=== PATIENT | female | born 1940 | race Hispanic/Latino ===

== ENCOUNTER 2016-11-04 17:57 | Emergency (ER) | payer MEDICARE, SELFPAY ==
[2016-11-04 18:01] VITALS: BMI 24.7
--- NOTE | 2016-11-04 18:06 | ED PDOC ---
Arrival/HPI - General Chief Complaint: Lower Extremity Problem/Injury Time Seen by Provider: 11/04/16 18:01 Historian: Patient, Family (Daughter translates), Mobile Game Engineer - History of Present Illness Time/Duration: Other (This morning) Symptom Onset: Sudden Symptom Course: Unchanged Severity Level: Moderate Associated Symptoms (Text): 11/04/16 18:05 Slip and fall on an icy step outside injuring her right lateral ankle. No other injury or trauma. Family/Social History - Physician Review Nursing Documentation Reviewed: Yes Family/Social History: Unknown Family HX Smoking Status: Never Smoked Hx Alcohol Use: No Hx Substance Use: No Allergies/Home Meds Allergies/Adverse Reactions: Allergies No Known Allergies Allergy (Verified 11/04/16 18:01) Review of Systems - Physician Review All systems were reviewed & negative as marked: Yes Physical Exam Vital Signs Temp Pulse Resp BP Pulse Ox 11/04/16 17:57 97.9 F 65 14 173/93 H 96 Temperature: Afebrile Blood Pressure: Normal Pulse: Regular Respiratory Rate: Normal Appearance: Positive for: Well-Appearing, Non-Toxic, Uncomfortable Pain Distress: Moderate Mental Status: Positive for: other (Awake alert and cooperative) - Systems Exam Upper Extremity: Present: NORMAL PULSES, Tenderness, Swelling, Neurovascularly Intact, Other (Right lateral ankle is tender swollen and ecchymotic. Patient is unable to bear weight. The foot is nontender. Medial malleolus and deltoid ligament are nontender. No proximal fibula tenderness.). No: Normal ROM, Erythema, Deformity Skin: Present: Warm, Dry, Normal Color. No: Rashes Medical Decision Making - RAD Interpretation Radiology Orders: 11/04/16 18:04 ANKLE RIGHT 3 VIEWS ROUTINE [RAD] Stat Ankle 3 view shows no fracture or dislocation Campground Manager: ED Physician Disposition/Present on Arrival - Present on Arrival Any Indicators Present on Arrival: No History of DVT/PE: No History of Uncontrolled Diabetes: No Urinary Catheter: No History of Decub. Ulcer: No - Disposition Have Diagnosis and Disposition been Completed?: Yes Diagnosis: Ankle sprain Disposition: HOME/ ROUTINE Disposition Time: 19:18 Patient Plan: Discharge Condition: GOOD Discharge Instructions (ExitCare): Ankle Sprain (ED) Additional Instructions: Rest ice and elevation. Tylenol or Advil as directed on bottle as needed. Follow -up with PMD. Follow up in ER as needed. Prescriptions: Tramadol HCl [Ultram] 50 mg PO Q6 PRN #14 tab PRN Reason: Pain
[2016-11-04 18:08] VITALS: BP 173/93; PULSE 65; RESP 14; TEMP 97.9; O2SAT 96
--- NOTE | 2016-11-05 10:31 | RAD ---
PROCEDURE: Right Ankle Radiographs. HISTORY: trauma COMPARISON: None available. FINDINGS: BONES: No acute displaced fracture. Small calcaneal enthesophyte. Small heel spur. JOINTS: No dislocation. SOFT TISSUES: Soft tissue swelling most prominent laterally. No evidence of radiopaque foreign body. OTHER FINDINGS: None. IMPRESSION: Soft tissue swelling most prominent laterally. No acute displaced fracture or dislocation identified. If symptoms persist or if there is clinical concern, x-ray follow-up in 7-10 days should be considered.
== END 2016-11-04 20:21 | disposition home or self-care (01) ==
LOC: ED 17:57
DX: S93.401A Sprain of unspecified ligament of right ankle, initial encounter (principal); W00.0XXA Fall on same level due to ice and snow, initial encounter

== ENCOUNTER 2018-04-29 21:08 | Inpatient (IN) | payer MEDICARE, OTHER ==
[2018-04-29 21:29] VITALS: BMI 25.6
--- NOTE | 2018-04-29 21:48 | ED PDOC ---
Arrival/HPI - General Chief Complaint: Weakness/Neurological Deficit Time Seen by Provider: 04/29/18 21:10 Historian: Patient, Family (Daughter) - History of Present Illness Narrative History of Present Illness (Text): 04/29/18 21:44 Nilam Kilpatrick is a 78 year old female, whose past medical history includes colon cancer and hypertension, who presents to the ED brought in by family complaining of chest pain. Daughter states patient has been experiencing chest pressure, nausea, and chills since 12:00 today. Daughter states patient is scheduled for surgery tomorrow and took GoLytely yesterday to prep for surgery. Daughter also reports patient took 2 doses of Azithromycin and Neomycin earlier and has not eaten today. Daughter denies any history of shortness of breath, abdominal pain, nausea, vomiting, diarrhea, or any other complaints. PMD: Dr. Kim Surgeon: Dr. Blanco Symptom Onset: Gradual Symptom Course: Unchanged Quality: Pressure Activities at Onset: Light Context: Home Past Medical History - Provider Review Nursing Documentation Reviewed: Yes - Infectious Disease Hx of Infectious Diseases: None - Reproductive Menopause: Yes - Cardiac Hx Hypertension: Yes - Pulmonary Hx Respiratory Disorders: No - Neurological Hx Neurological Disorder: No - HEENT Hx HEENT Disorder: No - Renal Hx Renal Disorder: No - Endocrine/Metabolic Hx Endocrine Disorders: No - Hematological/Oncological Hx Blood Disorders: No Hx Cancer: Yes (Colon) - Integumentary Hx Dermatological Disorder: No - Musculoskeletal/Rheumatological Hx Musculoskeletal Disorders: No - Gastrointestinal Hx Gastrointestinal Disorders: No Hx Bowel Surgery: No - Genitourinary/Gynecological Hx Genitourinary Disorders: No - Psychiatric Hx Psychophysiologic Disorder: No Hx Substance Use: No - Anesthesia Hx Anesthesia: No Hx Anesthesia Reactions: No Hx Malignant Hyperthermia: No Family/Social History - Physician Review Nursing Documentation Reviewed: Yes Family/Social History: Unknown Family HX Smoking Status: Never Smoked Hx Alcohol Use: No Hx Substance Use: No Allergies/Home Meds Allergies/Adverse Reactions: Allergies No Known Allergies Allergy (Verified 04/29/18 21:32) Home Medications: Home Meds Medication Instructions Recorded Confirmed Donepezil HCl [Aricept] 5 mg PO HS 04/13/18 04/13/18 Ibuprofen [Motrin Tab] 200 mg PO PRN PRN 04/13/18 04/13/18 Losartan [Cozaar] 50 mg PO DAILY 04/13/18 04/13/18 Meloxicam [Mobic] 15 mg PO DAILY 04/13/18 04/13/18 Timolol [Betimol 5 ml] 1 drop EACHEYE QAM 04/13/18 04/13/18 Review of Systems - Physician Review All systems were reviewed & negative as marked: Yes - Review of Systems Constitutional: Other (+shaking) Eyes: Normal ENT: Normal Respiratory: Cough Cardiovascular: Chest Pain Gastrointestinal: Nausea Genitourinary Female: Normal. absent: Dysuria, Frequency, Hematuria, Urine Output Changes Musculoskeletal: Normal. absent: Back Pain, Neck Pain Skin: Normal. absent: Rash Neurological: Normal. absent: Headache, Dizziness Endocrine: Normal Hemo/Lymphatic: Normal Psychiatric: Normal Physical Exam Vital Signs Reviewed: Yes Vital Signs Pulse Resp BP Pulse Ox 04/29/18 21:22 66 18 166/80 H 99 Temperature: Afebrile Blood Pressure: Hypertensive Pulse: Regular Respiratory Rate: Normal Appearance: Positive for: Well-Appearing, Non-Toxic, Comfortable Pain Distress: None Mental Status: Positive for: Alert and Oriented X 3 - Systems Exam Head: Present: Atraumatic, Normocephalic Pupils: Present: PERRL Extroacular Muscles: Present: EOMI Conjunctiva: Present: Normal Mouth: Present: Moist Mucous Membranes Neck: Present: Normal Range of Motion. No: Meningeal Signs, MIDLINE TENDERNESS , Paraspinal Tenderness Respiratory/Chest: Present: Clear to Auscultation, Good Air Exchange. No: Respiratory Distress, Accessory Muscle Use Cardiovascular: Present: Regular Rate and Rhythm, Normal S1, S2. No: Murmurs Abdomen: No: Tenderness, Distention, Peritoneal Signs Back: Present: Normal Inspection. No: CVA Tenderness, Midline Tenderness Upper Extremity: Present: Normal Inspection. No: Cyanosis, Edema Lower Extremity: Present: Normal Inspection. No: Edema Neurological: Present: GCS=15, CN II-XII Intact, Speech Normal Skin: Present: Warm, Dry, Normal Color. No: Rashes Psychiatric: Present: Alert, Oriented x 3, Normal Insight, Normal Concentration Medical Decision Making ED Course and Treatment: 04/29/18 21:44 Impression: 78 year old female brought in for chest pressure, nausea, and chills since 12: 00 today. Plan: -- EKG -- CXR -- Labs, cardiac enzymes -- Reassess and disposition Progress Notes: Reviewed EKG, NSR at 63 bpm. LAD. RBBB. Non-specific ST/T wave changes. 04/29/18 22:38 CXR reviewed, shows no acute processes. 04/29/18 23:17 Case discussed with emergency medical technician basic duplication specialist, who is aware and agrees with plan. House physician paged. 04/29/18 23:[address] Roach, ree heights physician, who is aware and agrees with plan. Accepts pt in to hospitalist service. Pt will go to remote telemetry observation for chest pain. - Lab Interpretations Lab Results: 04/29/18 22:08 04/29/18 22:08 Lab Results 04/29/18 22:08: PT 11.9, INR 1.04, APTT 29.1 04/29/18 22:08: WBC 8.0 D, RBC 4.54, Hgb 13.4, Hct 39.3, MCV 86.6, MCH 29.5, MCHC 34.1, RDW 13.8, Plt Count 252, MPV 10.7 04/29/18 22:08: Sodium 134, Potassium 3.5 L, Chloride 99, Carbon Dioxide 22, Anion Gap 16, BUN 11, Creatinine 0.7, Est GFR ( Amer) > 60, Est GFR (Non- Af Amer) > 60, Random Glucose 128 H, Calcium 8.9, Total Bilirubin 2.4 H, AST 31 , ALT 17, Alkaline Phosphatase 97, Lactate Dehydrogenase 469, Total Creatine Kinase 83, Troponin I < 0.01, Total Protein 7.3, Albumin 4.1, Globulin 3.2, Albumin/Globulin Ratio 1.3 I have reviewed the lab results: Yes - RAD Interpretation Radiology Orders: 04/29/18 21:50 CHEST PORTABLE [RAD] Stat Milling/Polishing Operator: ED Physician - EKG Interpretation Interpreted by ED Physician: Yes Type: 12 lead EKG - Medication Orders Current Medication Orders: Ondansetron HCl (Zofran Inj) 4 mg IVP ONCE ONE Stop: 04/29/18 23:27 - Scribe Statement The provider has reviewed the documentation as recorded by the Scribjono Jones All medical record entries made by the Scribe were at my direction and personally dictated by me. I have reviewed the chart and agree that the record accurately reflects my personal performance of the history, physical exam, medical decision making, and the department course for this patient. I have also personally directed, reviewed, and agree with the discharge instructions and disposition. Disposition/Present on Arrival - Present on Arrival Any Indicators Present on Arrival: No History of DVT/PE: No History of Uncontrolled Diabetes: No Urinary Catheter: No History of Decub. Ulcer: No History Surgical Site Infection Following: None - Disposition Have Diagnosis and Disposition been Completed?: Yes Diagnosis: Chest pain Disposition: HOSPITALIZED Disposition Time: 23:22 Patient Problems: Current Active Problems Problem Status Onset Chest pain Acute Condition: STABLE Discharge Instructions (ExitCare): Chest Pain (ED) Referrals: Becki Mtz MD [Primary Care Provider] - Follow up with primary Forms: [facility] [facility] (Cuban)
[2018-04-29 22:45] LABS: HEMOGLOBIN 13.4 g/dL (12.0-16.0); MEAN CELL VOLUME 86.6 fl (80.0-105.0); MEAN CORPUSCULAR HEMOGLOBIN 29.5 pg (25.0-35.0); MEAN CORPUSCULAR HGB CONC 34.1 g/dl (31.0-37.0); MEAN PLATELET VOLUME 10.7 fl (7.0-11.0); RBC 4.54 10^6/uL (3.5-6.1); RED CELL DISTRIBUTION WIDTH 13.8 % (11.5-14.5)
[2018-04-29 23:01] LABS: ALB/GLOB RATIO 1.3 (1.1-1.8); ALBUMIN 4.1 g/dL (3.0-4.8); ALT/SGPT 17 U/L (7-56); AST/SGOT 31 U/L (14-36); BLOOD UREA NITROGEN 11 mg/dL (7-21); CALCIUM 8.9 mg/dL (8.4-10.5); GFR NON-AFRICAN AMERICAN > 60
[2018-04-29 23:02] LABS: TROPONIN I < 0.01 ng/mL
[2018-04-29 23:08] LABS: INR 1.04; PARTIAL THROMBOPLASTIN TIME 29.1 Seconds (25.1-36.5); PROTHROMBIN TIME 11.9 SECONDS (9.4-12.5)
--- NOTE | 2018-04-30 02:09 | CP.PCM.HP ---
<Chava Mccray - Last Filed: 04/30/18 02:27> History of Present Illness - History of Present Illness History of Present Illness: Chava Mccray, PGY-1 H&P for Hospitalist Service This is a 78 year old female with PMH of colon cancer and HTN presenting to the hospital for generalized weakness, nausea and vague chest discomfort that began on Monday. Patient's daughter provides translation and states patient is scheduled for partial colectomy today by Dr. Blanco and took golytely on Monday and neomycin/azithromycin on Monday morning at 6am. Subsequently, around 12pm on Monday, patient started to feel nauseous, vomited x1 yellow fluid and had generalized weakness with atypical chest discomfort. Currently, patient admits symptoms have resolved. She denies CP, SOB, abdominal pain, urinary complaints, back pain, melena, numbness, tingling, headaches, fevers, chills, recent travel and recent sickness. 12 point ROS noted here, otherwise unremarkable. In the ED, EKG showed NSR with RBBB at 63 bpm. CXR was negative for acute disease (interpreted by me). Troponin was <0.01. Patient will be admitted to telemetry. PMH: colon cancer (diagnosed one month ago) and HTN SH: denies smoking, occasional alcohol and denies drugs FH: denies Sx: appendectomy Meds: losartan and donepezil PMD: Dr. Kim General Surgery: Dr. Blanco Present on Admission - Present on Admission Any Indicators Present on Admission: No Past Patient History - Infectious Disease Hx of Infectious Diseases: None - Past Social History Smoking Status: Never Smoked - CARDIAC Hx Hypertension: Yes - PULMONARY Hx Respiratory Disorders: No - NEUROLOGICAL Hx Neurological Disorder: No - HEENT Hx HEENT Problems: No - RENAL Hx Chronic Kidney Disease: No - ENDOCRINE/METABOLIC Hx Endocrine Disorders: No - HEMATOLOGICAL/ONCOLOGICAL Hx Blood Disorders: No Hx Cancer: Yes (Colon) - INTEGUMENTARY Hx Dermatological Problems: No - MUSCULOSKELETAL/RHEUMATOLOGICAL Hx Musculoskeletal Disorders: No - GASTROINTESTINAL Hx Gastrointestinal Disorders: No Hx Bowel Surgery: No - GENITOURINARY/GYNECOLOGICAL Hx Genitourinary Disorders: No - PSYCHIATRIC Hx Psychophysiologic Disorder: No Hx Substance Use: No - SURGICAL HISTORY Hx Surgeries: No - ANESTHESIA Hx Anesthesia: No Hx Anesthesia Reactions: No Hx Malignant Hyperthermia: No Meds Allergies/Adverse Reactions: Allergies Allergy/AdvReac Type Severity Reaction Status Date / Time No Known Allergies Allergy Verified 04/29/18 21:32 Physical Exam - Constitutional Appears: No Acute Distress - Head Exam Head Exam: ATRAUMATIC, NORMAL INSPECTION - Eye Exam Eye Exam: EOMI Pupil Exam: PERRL - ENT Exam ENT Exam: Mucous Membranes Moist - Respiratory Exam Respiratory Exam: Clear to Auscultation Bilateral. absent: Respiratory Distress - Cardiovascular Exam Cardiovascular Exam: REGULAR RHYTHM, +S1, +S2 - GI/Abdominal Exam GI & Abdominal Exam: Normal Bowel Sounds. absent: Firm, Guarding - Extremities Exam Extremities exam: Positive for: normal inspection. Negative for: calf tenderness - Back Exam Back exam: NORMAL INSPECTION - Neurological Exam Neurological exam: Alert, Oriented x3 - Skin Skin Exam: Normal Color, Warm Results - Vital Signs Recent Vital Signs: Last Vital Signs Temp 98.9 F 04/30/18 00:15 Pulse 61 04/30/18 00:15 Resp 16 04/30/18 00:15 BP 93/52 L 04/30/18 00:15 Pulse Ox 94 L 04/30/18 00:15 - Labs Result Diagrams: 04/29/18 22:08 04/29/18 22:08 Assessment & Plan - Assessment and Plan (Free Text) Assessment: This is a 78 year old female with PMH of colon cancer and HT presenting to the hospital for generalized weakness, nausea and atypical discomfort that began on Monday. Patient originally scheduled for partial colectomy today by Dr. Yanes. Chest pain -initial EKG showed NSR with RBBB at 63bpm -initial troponin <0.01 -EKG, troponin trending q6 x2 -echo pending -cardiology on consult, Dr. Gill History of colon cancer -partial colectomy today by Dr. Yanes -may need to be rescheduled and will need clearance by cardiology -cardiovascular surgical tech made aware of patient -NPO Hx of hypertension -continue home losartan PPX with protonix and SCD Patient seen and case d/w with attending, Dr. Doc Mccray, PGY-1 <Susanne Roach - Last Filed: 04/30/18 05:16> Results - Vital Signs Recent Vital Signs: Last Vital Signs Temp 98.1 F 04/30/18 02:33 Pulse 67 04/30/18 02:33 Resp 18 04/30/18 02:33 BP 117/66 04/30/18 02:33 Pulse Ox 95 04/30/18 02:33 - Labs Result Diagrams: 04/29/18 22:08 04/29/18 22:08 Attending/Attestation - Attestation I have personally seen and examined this patient.: Yes I have fully participated in the care of the patient.: Yes I have reviewed all pertinent clinical information: Yes Notes (Text): 04/30/18 05:12 Patient was seen when she was in the ER. Medical record was reviewed. Agree with history ,physical examination,assessment and plan. This 78 year old white woman who has history of HTN, who was recently diagnosed to have colon cancer is scheduled for surgery today, comes in with chest pressure and nause, EKG changes, will get serial EKG,Troponin cardiology and surgical consult with . Chest pressure had subsided when I saw patient.
[2018-04-30] MEDS: Pantoprazole 20 mg EC Tab PO SCH (05:13)
[2018-04-30] MEDS: Sodium Chloride 0.9% 1,000 ML IV SCH ×2 (05:56→22:02)
--- NOTE | 2018-04-30 06:11 | CP.PCM.CON ---
History of Present Illness - History of Present Illness History of Present Illness: General Surgery consult note for Dr. Blanco Consulted for: planned elective hand assisted lap hemicolectomy--presented to ER with chest pain Pt is 78F with PMH including HTN and colon cancer and PSH of appendectomy who was scheduled for an elective hand assisted laparoscopic hemicolectomy this AM but experienced chest pressure, nausea and nonbilious, non-blooding vomiting yesterday after taking the erythromycin and neomycin for the bowel prep. Patient denies any chest pain at this time, nausea, vomiting, or any other issues. Patient denies any personal or family history of heart problems but says she has had similar chest discomfort occasionally in the past. PMH: htn, colon cancer, glaucoma, arthritis PSH: glaucoma ALL: NKDA Review of Systems - Review of Systems All systems: reviewed and no additional remarkable complaints except (as per HPI ) Past Patient History - Infectious Disease Hx of Infectious Diseases: None - Past Medical History & Family History Past Medical History?: Yes Past Family History: Reviewed and not pertinent - Past Social History Smoking Status: Never Smoked - CARDIAC Hx Hypertension: Yes - PULMONARY Hx Respiratory Disorders: No - NEUROLOGICAL Hx Neurological Disorder: No - HEENT Hx HEENT Problems: No - RENAL Hx Chronic Kidney Disease: No - ENDOCRINE/METABOLIC Hx Endocrine Disorders: No - HEMATOLOGICAL/ONCOLOGICAL Hx Blood Disorders: No Hx Cancer: Yes (Colon) - INTEGUMENTARY Hx Dermatological Problems: No - MUSCULOSKELETAL/RHEUMATOLOGICAL Hx Musculoskeletal Disorders: No - GASTROINTESTINAL Hx Gastrointestinal Disorders: No Hx Bowel Surgery: No - GENITOURINARY/GYNECOLOGICAL Hx Genitourinary Disorders: No - PSYCHIATRIC Hx Psychophysiologic Disorder: No Hx Substance Use: No - SURGICAL HISTORY Hx Surgeries: No - ANESTHESIA Hx Anesthesia: No Hx Anesthesia Reactions: No Hx Malignant Hyperthermia: No Meds Allergies/Adverse Reactions: Allergies Allergy/AdvReac Type Severity Reaction Status Date / Time No Known Allergies Allergy Verified 04/29/18 21:32 - Medications Medications: Current Medications Donepezil HCl (Aricept) 5 mg PO HS JO ANN Potassium Chloride (Potassium Chloride 10 Meq/100 Ml) 10 meq in 100 mls @ 50 mls/hr IVPB Q2H JO ANN Stop: 04/30/18 09:44 Last Admin: 04/30/18 05:57 Dose: 50 mls/hr Sodium Chloride (Sodium Chloride 0.9%) 1,000 mls @ 100 mls/hr IV .Q10H [facility] Last Admin: 04/30/18 05:56 Dose: 100 mls/hr Losartan Potassium (Cozaar) 50 mg PO DAILY [facility] Pantoprazole Sodium (Protonix Ec Tab) 20 mg PO 0600 [facility] Last Admin: 04/30/18 05:13 Dose: Not Given Physical Exam - Constitutional Appears: Well, Non-toxic, No Acute Distress - Head Exam Head Exam: ATRAUMATIC, NORMOCEPHALIC - Eye Exam Eye Exam: Normal appearance. absent: Conjunctival injection, Scleral icterus - ENT Exam ENT Exam: Mucous Membranes Moist, Normal Oropharynx - Respiratory Exam Respiratory Exam: NORMAL BREATHING PATTERN. absent: Accessory Muscle Use, Respiratory Distress - Cardiovascular Exam Cardiovascular Exam: RRR - GI/Abdominal Exam GI & Abdominal Exam: Soft. absent: Distended, Tenderness - Extremities Exam Extremities exam: Positive for: pedal pulses present. Negative for: calf tenderness, pedal edema - Neurological Exam Neurological exam: Alert, Oriented x3 - Psychiatric Exam Psychiatric exam: Normal Affect, Normal Mood - Skin Skin Exam: Dry, Normal Color, Warm Results - Vital Signs Recent Vital Signs: Last Vital Signs Temp 98.1 F 04/30/18 02:33 Pulse 67 04/30/18 02:33 Resp 18 04/30/18 02:33 BP 117/66 04/30/18 02:33 Pulse Ox 95 04/30/18 02:33 - Labs Result Diagrams: 04/29/18 22:08 04/29/18 22:08 Assessment & Plan - Assessment and Plan (Free Text) Assessment: 78F with colon cancer presenting with chest pain Plan: Possible OR this AM pending anesthesia evaluation Follow up cardiology recs and ECHO and serial troponins NPO IVF Trend CBC and CMP PRN nausea medication Will discuss with Dr. Blanco, further recs per him Shani Wick, PGY2
--- NOTE | 2018-04-30 09:02 | RAD ---
Date of service: 04/29/2018 HISTORY: chest pain COMPARISON: 04/13/2018 FINDINGS: LUNGS: No active pulmonary disease. PLEURA: No significant pleural effusion identified, no pneumothorax apparent. CARDIOVASCULAR: Normal. OSSEOUS STRUCTURES: No significant abnormalities. VISUALIZED UPPER ABDOMEN: Normal. OTHER FINDINGS: None. IMPRESSION: No active disease.
[2018-04-30] MEDS ORDERED: Propofol 10 mg/ml Inj (20 ML) ONE (09:58)
[2018-04-30] MEDS ORDERED: Rocuronium 10 mg/ml (5 ml) ONE ×2 (09:59→11:10)
[2018-04-30] MEDS ORDERED: CeFAZolin 1 gm in NS 100ml IVPB ONE (10:30)
[2018-04-30] MEDS ORDERED: MetroNIDAZOLE 500 mg/100 ml IVPB ONE (10:35)
[2018-04-30] MEDS ORDERED: Bupivacaine 0.5% Inj(30mL) IJ ONE ×2 (10:40)
[2018-04-30] MEDS ORDERED: ePHEDrine 50 mg/ml Inj ONE (10:51)
[2018-04-30] MEDS ORDERED: Neostigmine Methylsulfate 3mg/3ml Syringe IV ONE (13:12)
[2018-04-30] MEDS ORDERED: Bupivacaine Liposomal Inj 20 ml INJ ONE (13:30)
[2018-04-30] MEDS ORDERED: HYDROmorphone 0.5 mg/0.5 ml ISec IVP PRN (14:12)
--- NOTE | 2018-04-30 14:13 | PCM.SURG1 ---
Surgeon's Initial Post Op Note - Surgeon's Notes Surgeon: Dr. Blanco Pin Ticket Machine Operator: Dr. Cano PGY3, [place] Type of Anesthesia: General Endo Anesthesia Administered By: Dr. Burdick Pre-Operative Diagnosis: Ileocecal adenocarcinoma Operative Findings: See operative dictation Post-Operative Diagnosis: Ileocecal Adenocarcinoma Operation Performed: Laparoscopic hand assisted colectomy with ileotransverse anastamosis, repair of umbilical hernia Specimen/Specimens Removed: Distal ileum/cecum and ascending colon Estimated Blood Loss: EBL {In ML}: 10 Blood Products Given: N/A Drains Used: No Drains Post-Op Condition: Good Date of Surgery/Procedure: 04/30/18 Time of Surgery/Procedure: 14:13
[2018-04-30] MEDS ORDERED: Acetaminophen 650mg/20.3ml solution UD PO PRN (14:21)
--- NOTE | 2018-04-30 15:55 | CARD ---
APPROVED REPORT Date of service: 04/29/2018 EKG Measurement Heart [id number] <Conclusion> Normal sinus rhythm Left axis deviation Right bundle branch block Cannot rule out Inferior infarct, age undetermined Abnormal ECG
[2018-04-30] MEDS: HYDROmorphone 0.5 mg/0.5 ml ISec IVP PRN (17:37)
--- NOTE | 2018-04-30 18:27 | CARD ---
APPROVED REPORT Date of service: 04/30/2018 EKG Measurement Heart [id number] <Conclusion> Sinus rhythm with occasional premature ventricular complexes Right bundle branch block Possible Inferior infarct, age undetermined Abnormal ECG
[2018-04-30] MEDS: Benzocaine/Menthol (Cepacol) Lozenge MT PRN (20:55)
[2018-05-01] MEDS: Pantoprazole 20 mg EC Tab PO SCH (05:27)
[2018-05-01] MEDS: HYDROmorphone 0.5 mg/0.5 ml ISec IVP PRN ×2 (05:28→21:14)
[2018-05-01 06:36] LABS: BASO # 0.01 K/mm3 (0.0-2.0); BASO % 0.1 % (0.0-3.0); GRAN # 5.64 (1.4-6.5); GRAN % 71.9 % (50.0-68.0); HEMOGLOBIN 11.7 g/dL (12.0-16.0); LYMPH # 1.3 (1.2-3.4); LYMPH % 16.4 % (22.0-35.0); MEAN CELL VOLUME 88.6 fl (80.0-105.0); MEAN CORPUSCULAR HEMOGLOBIN 29.5 pg (25.0-35.0); MEAN CORPUSCULAR HGB CONC 33.3 g/dl (31.0-37.0); MONO # 0.9 (0.1-0.6); MONO % 11.6 % (1.0-6.0); RBC 3.96 10^6/uL (3.5-6.1); RED CELL DISTRIBUTION WIDTH 14.2 % (11.5-14.5); WHITE BLOOD COUNT 7.9 10^3/ul (4.5-11.0)
[2018-05-01 07:08] LABS: ALB/GLOB RATIO 1.1 (1.1-1.8); ALBUMIN 2.9 g/dL (3.0-4.8); ALT/SGPT 22 U/L (7-56); AST/SGOT 24 U/L (14-36); BLOOD UREA NITROGEN 8 mg/dL (7-21); CALCIUM 7.9 mg/dL (8.4-10.5); GFR NON-AFRICAN AMERICAN > 60
--- NOTE | 2018-05-01 07:23 | CP.PCM.PN ---
Subjective - Date & Time of Evaluation Date of Evaluation: 05/01/18 Time of Evaluation: 06:30 - Subjective Subjective: Awake,comfortable, denies chest pain Reason for consultation and follow up: Cardiac evaluation of chest pain,cardiac clearance for surgery, follow up status post laparoscopic colectomy and repair of umbilical hernia.History of colon cancer and hypertension. Seen and examined by me and Dr. Katz Objective - Vital Signs/Intake and Output Vital Signs (last 24 hours): Temp Pulse Resp BP Pulse Ox 99.9 F H 61 20 147/79 95 05/01/18 00:00 05/01/18 02:00 05/01/18 00:00 05/01/18 00:00 05/01/18 00:00 Intake and Output: 05/01/18 05/01/18 06:59 18:59 Intake Total 1440 Output Total 2300 Balance -860 - Medications Medications: Current Medications Acetaminophen (Tylenol 650mg/20.3ml Solution Ud) 650 mg PO Q6H PRN PRN Reason: Pain, Mild (1-3) Benzocaine/Menthol (Cepacol Sore Throat) 1 jacob MT Q2H PRN PRN Reason: Sore Throat Last Admin: 04/30/18 20:55 Dose: 1 jacob Donepezil HCl (Aricept) 5 mg PO HS [facility] Last Admin: 05/01/18 01:01 Dose: Not Given Enoxaparin Sodium (Lovenox) 30 mg SC DAILY [facility] PRN Reason: Protocol Hydromorphone HCl (Dilaudid) 0.5 mg IVP Q6H PRN PRN Reason: Pain, severe (8-10) Last Admin: 05/01/18 05:28 Dose: 0.5 mg Sodium Chloride (Sodium Chloride 0.9%) 1,000 mls @ 100 mls/hr IV .Q10H JO ANN Last Admin: 04/30/18 22:02 Dose: 100 mls/hr Losartan Potassium (Cozaar) 50 mg PO DAILY [facility] Last Admin: 04/30/18 11:49 Dose: Not Given Pantoprazole Sodium (Protonix Ec Tab) 20 mg PO 0600 [facility] Last Admin: 05/01/18 05:27 Dose: 20 mg - Labs Labs: 05/01/18 06:00 05/01/18 06:00 PT 11.9 SECONDS (9.4-12.5) 04/29/18 22:08 INR 1.04 04/29/18 22:08 APTT 29.1 Seconds (25.1-36.5) 04/29/18 22:08 - Constitutional Appears: No Acute Distress - Eye Exam Eye Exam: Normal appearance - ENT Exam ENT Exam: Mucous Membranes Moist - Respiratory Exam Respiratory Exam: Clear to Ausculation Bilateral, NORMAL BREATHING PATTERN - Cardiovascular Exam Cardiovascular Exam: REGULAR RHYTHM, +S1, +S2 Additional comments: Telemetry NSR 60-70's - GI/Abdominal Exam GI & Abdominal Exam: Soft, Hypoactive Bowel Sounds Additional comments: abdominal dressing,dermabond laparoscopic sites - Extremities Exam Extremities Exam: Normal Capillary Refill - Neurological Exam Neurological Exam: Alert, Awake, Oriented x3 - Psychiatric Exam Psychiatric exam: Normal Affect - Skin Skin Exam: Intact, Warm Assessment and Plan - Assessment and Plan (Free Text) Assessment: A 78 year old who came in to the ER due to weakness,nausea,vomiting and vague chest discomfort. She was taking golyte for bowel prep for colectomy the following day.History of colon cancer, hypertension. Atypical chest discomfort. No evidence of ischemia, troponin normal.Cleared for surgery yesterday.Status post laparoscopic colectomy and repair of umbilical hernia yesterday. Doing well , stable clinically. Plan: Status post lap colectomy and umbilical hernia repair POD#1 Heart rate and blood pressure controlled Denies chest pain and shortness of breath Continue current treatment Continue current medications OOB to chair Will follow up Plan and treatment discussed with Dr. Katz
--- NOTE | 2018-05-01 08:01 | CON ---
DATE: 04/30/2018 BRIEF CLINICAL HISTORY: This is a 78-year-old female with past medical history of hypertension, scheduled for OR for colectomy for colon cancer. The patient was drinking Colyte and started throwing up and abdominal pain, so came here. At one point, the patient said that probably abdominal pain and feel chest pain, so Cardiology consult was called for. Denies any chest pain, shortness of breath, any palpitation. PAST MEDICAL HISTORY: Past history significant for hypertension, right bundle-branch block. SOCIAL HISTORY: Denies any history of alcohol abuse. CURRENT MEDICATIONS: Losartan, donepezil. PAST SURGICAL HISTORY: History of appendectomy, recently diagnosed colon cancer. REVIEW OF SYSTEMS: As per HPI. ALLERGIES: THERE IS NO KNOWN DRUG ALLERGY. PHYSICAL EXAMINATION: VITAL SIGNS: Height of the patient is 5 feet 2 inches, weight of the patient 140, body mass index . Temperature afebrile, heart rate , blood pressure 123/61. HEENT: PERRLA, intact. NECK: Supple. No carotid bruit. No thyromegaly. CHEST: Clear to auscultation. HEART: S1 and S2 regular. ABDOMEN: Soft. EXTREMITIES: Clubbing and cyanosis negative. LABORATORY DATA: Blood workup; WBC 8, hemoglobin 13.4, hematocrit 39.3, platelet count 252. Chemistry shows sodium 134, potassium 3.5, chloride , carbon dioxide 22, anion gap of 16, BUN 11, creatinine 0.7. Troponin 0.01, negative. EKG shows normal sinus rhythm, right bundle-branch block. Q wave in II, III, aVF. IMPRESSION: A 78-year-old female with past medical history significant for hypertension, recently diagnosed colon cancer. Admitted for colon surgery. Denies any chest pain. No evidence of acute myocardial infarction. Troponin remains negative. RECOMMENDATIONS: The patient is scheduled for OR this morning. The patient is cleared to go for surgery with moderate risk. We will follow with you. Discussed with resident and the nurse taking care of the patient. We will clear the patient to go for surgery. Further recommendations during the hospital course. We will follow with you. Thank you, Dr. Blanco for providing us the opportunity in taking care of the patient, Nilam Kilpatrick. Hardeep Katz MD [facility] # [id number]
--- NOTE | 2018-05-01 08:54 | CP.PCM.PN ---
Subjective - Date & Time of Evaluation Date of Evaluation: 05/01/18 Time of Evaluation: 07:20 - Subjective Subjective: General Surgery progress note for Dr. Dukes Patient seen and examined with Dr. Blount at bedside. No adverse events overnight. Pain is well controlled on current regimen, no nausea or vomiting. Objective - Vital Signs/Intake and Output Vital Signs (last 24 hours): Temp Pulse Resp BP Pulse Ox 98.5 F 64 19 167/84 H 96 05/01/18 08:31 05/01/18 08:31 05/01/18 08:31 05/01/18 08:31 05/01/18 08:31 Intake and Output: 05/01/18 05/01/18 06:59 18:59 Intake Total 1440 Output Total 2300 Balance -860 - Medications Medications: Current Medications Acetaminophen (Tylenol 650mg/20.3ml Solution Ud) 650 mg PO Q6H PRN PRN Reason: Pain, Mild (1-3) Benzocaine/Menthol (Cepacol Sore Throat) 1 jacob MT Q2H PRN PRN Reason: Sore Throat Last Admin: 04/30/18 20:55 Dose: 1 jacob Donepezil HCl (Aricept) 5 mg PO HS [facility] Last Admin: 05/01/18 01:01 Dose: Not Given Enoxaparin Sodium (Lovenox) 30 mg SC DAILY [facility] PRN Reason: Protocol Hydromorphone HCl (Dilaudid) 0.5 mg IVP Q6H PRN PRN Reason: Pain, severe (8-10) Last Admin: 05/01/18 05:28 Dose: 0.5 mg Sodium Chloride (Sodium Chloride 0.9%) 1,000 mls @ 100 mls/hr IV .Q10H JO [facility] Last Admin: 04/30/18 22:02 Dose: 100 mls/hr Losartan Potassium (Cozaar) 50 mg PO DAILY [facility] Last Admin: 04/30/18 11:49 Dose: Not Given Pantoprazole Sodium (Protonix Ec Tab) 20 mg PO 0600 [facility] Last Admin: 05/01/18 05:27 Dose: 20 mg - Labs Labs: 05/01/18 06:00 05/01/18 06:00 PT 11.9 SECONDS (9.4-12.5) 04/29/18 22:08 INR 1.04 09/09/18 22:08 APTT 29.1 Seconds (25.1-36.5) 04/29/18 22:08 - Constitutional Appears: Well, Non-toxic, No Acute Distress - Head Exam Head Exam: ATRAUMATIC, NORMOCEPHALIC - Eye Exam Eye Exam: Normal appearance. absent: Conjunctival injection, Scleral icterus - ENT Exam ENT Exam: Mucous Membranes Moist, Normal Oropharynx - Respiratory Exam Respiratory Exam: NORMAL BREATHING PATTERN. absent: Accessory Muscle Use, Respiratory Distress - GI/Abdominal Exam GI & Abdominal Exam: Soft, Tenderness (kb-incisional). absent: Distended Additional comments: incisions well approximated, no drainage, erythema, or bleeding - Extremities Exam Extremities Exam: absent: Calf Tenderness, Pedal Edema, Tenderness - Neurological Exam Neurological Exam: Alert, Awake, Oriented x3 - Psychiatric Exam Psychiatric exam: Normal Affect, Normal Mood - Skin Skin Exam: Dry, Normal Color, Warm Assessment and Plan - Assessment and Plan (Free Text) Assessment: 78F POD#1 s/p hand assisted laparoscopic right hemicolectomy Plan: trend CBC and bmp Replete electrolytes as needed Advance to CLD as tolerated Monitor for bowel function Encourage ambulation Encourage incentive spirometer use PRN pain and nausea medication Discussed with Dr. Ernst Wick, Pgy2
[2018-05-01] MEDS ORDERED: Enoxaparin 150 mg Syringe SC SCH (10:00)
[2018-05-01] MEDS ORDERED: Potassium Chloride 20 mEq ER Tab PO ONE (11:18)
[2018-05-01] MEDS: Enoxaparin 30 mg Syringe SC SCH (11:30)
[2018-05-01 11:33] LABS: HDL CHOLESTEROL 41 mg/dL (29-60)
[2018-05-01] MEDS: Sodium Chloride 0.9% 1,000 ML IV SCH (11:43)
[2018-05-01 11:44] LABS: LDL CHOLESTEROL 65 mg/dL (0-129)
[2018-05-01] MEDS: Benzocaine/Menthol (Cepacol) Lozenge MT PRN (11:50)
--- NOTE | 2018-05-01 19:26 | CP.PCM.PN ---
<Joe Lin - Last Filed: 05/01/18 19:34> Subjective - Date & Time of Evaluation Date of Evaluation: 05/01/18 Time of Evaluation: 07:20 - Subjective Subjective: Joe Lin DO PGY-1, Internal Medicine Resident. Hospitalist Progress Note Patient seen and examined at bedside. Patient is POD#1 s/p laparscoptic colectomy with ileotransverse anastomosis and umbilical hernia repair. She is resting in bed. He did not have bowel movement or pass gas yet. . No acute events overnight. Patient denied SOB, CP, palpitations, headache, fever. ROS is otherwise negative Objective - Vital Signs/Intake and Output Vital Signs (last 24 hours): Temp Pulse Resp BP Pulse Ox 98.5 F 72 19 167/84 H 96 05/01/18 08:31 05/01/18 18:00 05/01/18 08:31 05/01/18 11:29 05/01/18 08:31 Intake and Output: 05/01/18 05/02/18 18:59 06:59 Intake Total 2000 Output Total 500 Balance 1500 - Medications Medications: Current Medications Acetaminophen (Tylenol 650mg/20.3ml Solution Ud) 650 mg PO Q6H PRN PRN Reason: Pain, Mild (1-3) Last Admin: 05/01/18 15:11 Dose: 650 mg Benzocaine/Menthol (Cepacol Sore Throat) 1 jacob MT Q2H PRN PRN Reason: Sore Throat Last Admin: 05/01/18 11:50 Dose: 1 jacob Donepezil HCl (Aricept) 5 mg PO HS [facility] Last Admin: 05/01/18 01:01 Dose: Not Given Enoxaparin Sodium (Lovenox) 30 mg SC DAILY JO [facility] PRN Reason: Protocol Last Admin: 05/01/18 11:30 Dose: 30 mg Hydromorphone HCl (Dilaudid) 0.5 mg IVP Q6H PRN PRN Reason: Pain, severe (8-10) Last Admin: 05/01/18 05:28 Dose: 0.5 mg Sodium Chloride (Sodium Chloride 0.9%) 1,000 mls @ 50 mls/hr IV .Q20H JO ANN Last Admin: 05/01/18 11:43 Dose: 50 mls/hr Losartan Potassium (Cozaar) 50 mg PO DAILY [facility] Last Admin: 05/01/18 11:29 Dose: 50 mg Pantoprazole Sodium (Protonix Ec Tab) 20 mg PO 0600 [facility] Last Admin: 05/01/18 05:27 Dose: 20 mg - Labs Labs: 05/01/18 06:00 05/01/18 06:00 PT 11.9 SECONDS (9.4-12.5) 04/29/18 22:08 INR 1.04 04/29/18 22:08 APTT 29.1 Seconds (25.1-36.5) 04/29/18 22:08 - Constitutional Appears: Well, No Acute Distress - Head Exam Head Exam: ATRAUMATIC, NORMAL INSPECTION, NORMOCEPHALIC - Eye Exam Eye Exam: EOMI, Normal appearance, PERRL Pupil Exam: NORMAL ACCOMODATION, PERRL - ENT Exam ENT Exam: Mucous Membranes Moist, Normal Exam - Neck Exam Neck Exam: Full ROM, Normal Inspection. absent: Lymphadenopathy - Respiratory Exam Respiratory Exam: Clear to Ausculation Bilateral, NORMAL BREATHING PATTERN - Cardiovascular Exam Cardiovascular Exam: REGULAR RHYTHM, +S1, +S2. absent: Murmur - GI/Abdominal Exam GI & Abdominal Exam: Soft, Normal Bowel Sounds Additional comments: No tenderness to light palpation. Laproscopic surgical site on midline upper abdomen is covered with dressing, no surrounding erythema or bleeding. No ecchymosis. - Extremities Exam Extremities Exam: Full ROM, Normal Capillary Refill, Normal Inspection. absent : Joint Swelling, Pedal Edema - Back Exam Back Exam: NORMAL INSPECTION - Neurological Exam Neurological Exam: Alert, Awake, CN II-XII Intact, Normal Gait, Oriented x3 - Psychiatric Exam Psychiatric exam: Normal Affect, Normal Mood - Skin Skin Exam: Dry, Intact, Normal Color, Warm Assessment and Plan - Assessment and Plan (Free Text) Assessment: 78 year old female with PMH of colon cancer and HTN presenting to the hospital for generalized weakness, nausea and atypical chest discomfort after bowel prep antibiotic administration. Patient admitted for medical management and scheduled laparscopic partial colectomy. Plan: s/p laparscopic partial colectomy and abdominal hernia repair -surgical site is clean. dressing applied. no signs of infection. no erythema -patient did not have bowel movement or passed gas yet -Diet advance to clear liquid as tolerated -waiting for clearing by surgery team -Tylenol for mild pain prn -Dilaudid for severe pain prn -continue IVF HTN -continue home losartan -BP controlled PPX with protonix Lovenox 30mg daily Case reviewed and plan discussed with Dr. Malloy <Ish Malloy - Last Filed: 05/02/18 07:44> Objective - Vital Signs/Intake and Output Vital Signs (last 24 hours): Temp Pulse Resp BP Pulse Ox 98.5 F 72 19 167/84 H 96 05/01/18 08:31 05/01/18 18:00 05/01/18 08:31 05/01/18 11:29 05/01/18 08:31 Intake and Output: 05/02/18 05/02/18 06:59 18:59 Intake Total 2975 Output Total 1650 Balance 1325 - Medications Medications: Current Medications Acetaminophen (Tylenol 650mg/20.3ml Solution Ud) 650 mg PO Q6H PRN PRN Reason: Pain, Mild (1-3) Last Admin: 05/01/18 15:11 Dose: 650 mg Benzocaine/Menthol (Cepacol Sore Throat) 1 jacob MT Q2H PRN PRN Reason: Sore Throat Last Admin: 05/01/18 11:50 Dose: 1 jacob Donepezil HCl (Aricept) 5 mg PO HS [facility] Last Admin: 05/01/18 21:13 Dose: 5 mg Enoxaparin Sodium (Lovenox) 30 mg SC DAILY [facility] PRN Reason: Protocol Last Admin: 05/01/18 11:30 Dose: 30 mg Losartan Potassium (Cozaar) 50 mg PO DAILY [facility] Last Admin: 05/01/18 11:29 Dose: 50 mg Oxycodone/Acetaminophen (Percocet 5/325 Mg Tab) 1 tab PO Q6H PRN PRN Reason: Pain, severe (8-10) Stop: 05/05/18 07:39 Pantoprazole Sodium (Protonix Ec Tab) 20 mg PO 0600 [facility] Last Admin: 05/02/18 06:24 Dose: 20 mg - Labs Labs: 05/02/18 05:40 05/02/18 05:40 PT 11.9 SECONDS (9.4-12.5) 04/29/18 22:08 INR 1.04 04/29/18 22:08 APTT 29.1 Seconds (25.1-36.5) 04/29/18 22:08 Attending/Attestation - Attestation I have personally seen and examined this patient.: Yes I have fully participated in the care of the patient.: Yes I have reviewed all pertinent clinical information, including history, physical exam and plan: Yes Notes (Text): 05/01/18 78 year old female with past medical history of colon cancer and hypertension who presented with atypical chest pain and nausea after bowel prep administration for planned colectomy procedure. Serial cardiac enzymes were negative and ACS was ruled out. Cardiology evaluation was appreciated. Echocardiogram was reviewed; preserved EF. Chest pain is resolved. Surgery evaluation was also appreciated; patient is s/p laparoscopic partial colectomy POD #1. Monitor for bowel function. Advance diet as tolerated as per surgery. Patient is on losartan for hypertension. Ish Malloy MD Hospitalist.
--- NOTE | 2018-05-01 22:08 | CARD ---
APPROVED REPORT Date of service: 05/01/2018 EXAM: Two-dimensional and M-mode echocardiogram with Doppler and color Doppler. INDICATION Chest Pain 2D DIMENSIONS IVSd1.1 (0.7-1.1cm)LVDd4.0 (3.9-5.9cm) PWd1.1 (0.7-1.1cm)LVDs2.5 (2.5-4.0cm) FS (%) 38.4 %LVEF (%)69.4 (>50%) M-Mode DIMENSIONS Aortic Root3.40 (2.2-3.7cm)Aortic Cusp Exc.1.70 (1.5-2.0cm) Aortic Valve AoV Peak Gaspwgfo564.0cm/Melo Peak GR.8mmHgLVOT Peak Nnwxcwbz400.0cm/s LVOT VTI29.40cm Mitral Valve MV E Gswtlskw72.9cm/sMV A Mdmqhuak02.9cm/sE/A ratio0.9 TDI Lateral E' Peak V9.36cm/sMedial E' Peak V8.09cm/sE/Lateral E'8.9 E/Medial E'10.2 Pulmonary Valve PV Peak Ovyxpwjf35.9cm/sPV Peak Grad.3mmHg Tricuspid Valve TR Peak Pibofuie024ei/sRAP VTBCXOJP74yfKkAN Peak Gr.25mmHg ZXRS21nhFe LEFT VENTRICLE The left ventricle is normal size. There is normal left ventricular wall thickness. The left ventricular function is normal.EF-65-70% There is normal LV segmental wall motion. Transmitral Doppler flow pattern is Grade III-reversible restrictive diastolic dysfunction. No left ventricle thrombus noted on this study. There is no ventricular septal defect visualized. There is no left ventricular aneurysm. There is no mass noted in the left ventricle. RIGHT VENTRICLE The right ventricle is normal size. There is normal right ventricular wall thickness. The right ventricular systolic function is normal. ATRIA The left atrium size is normal. The right atrium size is normal. The interatrial septum is intact with no evidence for an atrial septal defect. AORTIC VALVE The aortic valve is normal in structure. No aortic regurgitation is present. There is no aortic valvular stenosis. There is no aortic valvular vegetation. MITRAL VALVE The mitral valve is normal in structure. Mitral regurgitation is trace. There is no mitral valve stenosis. There is no evidence of mitral valve prolapse. TRICUSPID VALVE The tricuspid valve is normal in structure. There is trace tricuspid regurgitation.RVSP-35 mmof Hg There is no tricuspid valve stenosis. There is no tricuspid valve prolapse or vegetation. PULMONIC VALVE The pulmonary valve is normal in structure. There is no pulmonic valvular regurgitation. There is no pulmonic valvular stenosis. GREAT VESSELS The aortic root is normal in size. The ascending aorta is normal in size. The pulmonary artery is normal. The IVC is normal in size and collapses >50% with inspiration. PERICARDIAL EFFUSION There is no pleural effusion. There is no pericardial effusion. <Conclusion> Normal Chamber Size. EF-65-70%. Trace Mr/TR RVSP-35 mmof Hg.
[2018-05-02] MEDS: Sodium Chloride 0.9% 1,000 ML IV SCH (02:37)
[2018-05-02] MEDS: HYDROmorphone 0.5 mg/0.5 ml ISec IVP PRN (04:06)
[2018-05-02 06:22] LABS: BASO # 0.02 K/mm3 (0.0-2.0); BASO % 0.3 % (0.0-3.0); EOS # 0.1 (0.0-0.7); EOS % 1.8 % (1.5-5.0); GRAN # 5.18 (1.4-6.5); GRAN % 67.5 % (50.0-68.0); HEMOGLOBIN 11.9 g/dL (12.0-16.0); LYMPH # 1.5 (1.2-3.4); LYMPH % 18.9 % (22.0-35.0); MEAN CELL VOLUME 89.5 fl (80.0-105.0); MEAN CORPUSCULAR HEMOGLOBIN 29.2 pg (25.0-35.0); MEAN CORPUSCULAR HGB CONC 32.6 g/dl (31.0-37.0); MEAN PLATELET VOLUME 10.2 fl (7.0-11.0); MONO # 0.9 (0.1-0.6); MONO % 11.5 % (1.0-6.0); RBC 4.08 10^6/uL (3.5-6.1); RED CELL DISTRIBUTION WIDTH 14.3 % (11.5-14.5); WHITE BLOOD COUNT 7.7 10^3/ul (4.5-11.0)
[2018-05-02] MEDS: Pantoprazole 20 mg EC Tab PO SCH (06:24)
--- NOTE | 2018-05-02 06:53 | CP.PCM.PN ---
Subjective - Date & Time of Evaluation Date of Evaluation: 05/02/18 Time of Evaluation: 06:25 - Subjective Subjective: No distress, awake,denies chest pain Reason for consultation and follow up: Cardiac evaluation of chest pain,cardiac clearance for surgery, follow up status post laparoscopic colectomy and repair of umbilical hernia.History of colon cancer and hypertension. Seen and examined by me and Dr. Katz Objective - Vital Signs/Intake and Output Vital Signs (last 24 hours): Temp Pulse Resp BP Pulse Ox 98.5 F 72 19 167/84 H 96 05/01/18 08:31 05/01/18 18:00 05/01/18 08:31 05/01/18 11:29 05/01/18 08:31 Intake and Output: 05/01/18 05/02/18 18:59 06:59 Intake Total 2000 Output Total 500 Balance 1500 - Medications Medications: Current Medications Acetaminophen (Tylenol 650mg/20.3ml Solution Ud) 650 mg PO Q6H PRN PRN Reason: Pain, Mild (1-3) Last Admin: 05/01/18 15:11 Dose: 650 mg Benzocaine/Menthol (Cepacol Sore Throat) 1 jacob MT Q2H PRN PRN Reason: Sore Throat Last Admin: 05/01/18 11:50 Dose: 1 jacob Donepezil HCl (Aricept) 5 mg PO HS [facility] Last Admin: 05/01/18 21:13 Dose: 5 mg Enoxaparin Sodium (Lovenox) 30 mg SC DAILY [facility] PRN Reason: Protocol Last Admin: 05/01/18 11:30 Dose: 30 mg Hydromorphone HCl (Dilaudid) 0.5 mg IVP Q6H PRN PRN Reason: Pain, severe (8-10) Last Admin: 05/02/18 04:06 Dose: 0.5 mg Losartan Potassium (Cozaar) 50 mg PO DAILY [facility] Last Admin: 05/01/18 11:29 Dose: 50 mg Pantoprazole Sodium (Protonix Ec Tab) 20 mg PO 0600 JO [facility] Last Admin: 05/02/18 06:24 Dose: 20 mg - Labs Labs: 05/02/18 05:40 05/01/18 06:00 PT 11.9 SECONDS (9.4-12.5) 04/29/18 22:08 INR 1.04 04/29/18 22:08 APTT 29.1 Seconds (25.1-36.5) 04/29/18 22:08 - Constitutional Appears: No Acute Distress - Eye Exam Eye Exam: Normal appearance - ENT Exam ENT Exam: Mucous Membranes Moist - Respiratory Exam Respiratory Exam: Clear to Ausculation Bilateral, NORMAL BREATHING PATTERN - Cardiovascular Exam Cardiovascular Exam: +S1, +S2 - GI/Abdominal Exam GI & Abdominal Exam: Soft, Normal Bowel Sounds Additional comments: Abdominal dressing intact/dermabond - Extremities Exam Extremities Exam: Normal Capillary Refill - Neurological Exam Neurological Exam: Alert, Awake, Oriented x3 - Psychiatric Exam Psychiatric exam: Normal Affect - Skin Skin Exam: Dry, Warm Assessment and Plan - Assessment and Plan (Free Text) Assessment: A 78 year old who came in to the ER due to weakness,nausea,vomiting and vague chest discomfort. She was taking golyte for bowel prep for colectomy the following day.History of colon cancer, hypertension. Atypical chest discomfort. No evidence of ischemia, troponin normal.Cleared for surgery yesterday.Status post laparoscopic colectomy and repair of umbilical hernia POD#2.. Clinically stable. discharge planning. Plan: Status post lap colectomy and umbilical hernia repair POD#2 Ambulating to bathroom, able to pass flatus Advanced diet as tolerated stable cardiac status Heart rate and blood pressure controlled Denies chest pain and shortness of breath Continue current treatment Continue current medications OOB to chair,encourage ambulation Discharge planning Will follow up Plan and treatment discussed with Dr. Katz
[2018-05-02 06:57] LABS: ALB/GLOB RATIO 1.1 (1.1-1.8); ALBUMIN 3.1 g/dL (3.0-4.8); ALT/SGPT 15 U/L (7-56); AST/SGOT 27 U/L (14-36); BLOOD UREA NITROGEN 4 mg/dL (7-21); CALCIUM 8.2 mg/dL (8.4-10.5); GFR NON-AFRICAN AMERICAN > 60
[2018-05-02] MEDS: Oxycodone/Acetaminophen 5/325 mg Tab PO PRN (09:29)
[2018-05-02] MEDS: Enoxaparin 30 mg Syringe SC SCH (09:30)
[2018-05-02] MEDS ORDERED: Potassium Chloride 20 mEq ER Tab PO ONE (09:33)
[2018-05-02 09:35] VITALS: RESP 20
--- NOTE | 2018-05-02 14:17 | CP.PCM.PN ---
Subjective - Date & Time of Evaluation Date of Evaluation: 05/02/18 Time of Evaluation: 14:13 - Subjective Subjective: General Surgery Progress Note for Dr. Blanco This 78F was seen and examined this AM at bedside. No acute events overnight. She reports she is passing flatus and tolerating clears. She denies any chest pain or SOB. She reports inscsional pain however reports it is tolerable. Objective - Vital Signs/Intake and Output Vital Signs (last 24 hours): Temp Pulse Resp BP Pulse Ox 98.2 F 68 20 150/80 95 05/02/18 06:00 05/02/18 09:28 05/02/18 06:00 05/02/18 09:28 05/02/18 06:00 Intake and Output: 05/02/18 05/02/18 06:59 18:59 Intake Total 2975 Output Total 1650 Balance 1325 - Medications Medications: Current Medications Acetaminophen (Tylenol 650mg/20.3ml Solution Ud) 650 mg PO Q6H PRN PRN Reason: Pain, Mild (1-3) Last Admin: 05/01/18 15:11 Dose: 650 mg Benzocaine/Menthol (Cepacol Sore Throat) 1 jacob MT Q2H PRN PRN Reason: Sore Throat Last Admin: 05/01/18 11:50 Dose: 1 jacob Donepezil HCl (Aricept) 5 mg PO HS [facility] Last Admin: 05/01/18 21:13 Dose: 5 mg Enoxaparin Sodium (Lovenox) 30 mg SC DAILY [facility] PRN Reason: Protocol Last Admin: 05/02/18 09:30 Dose: 30 mg Losartan Potassium (Cozaar) 50 mg PO DAILY [facility] Last Admin: 05/02/18 09:28 Dose: 50 mg Oxycodone/Acetaminophen (Percocet 5/325 Mg Tab) 1 tab PO Q6H PRN PRN Reason: Pain, severe (8-10) Stop: 05/05/18 07:39 Last Admin: 05/02/18 09:29 Dose: 1 tab Pantoprazole Sodium (Protonix Ec Tab) 20 mg PO 0600 [facility] Last Admin: 05/02/18 06:24 Dose: 20 mg - Labs Labs: 05/02/18 05:40 05/02/18 05:40 PT 11.9 SECONDS (9.4-12.5) 04/29/18 22:08 INR 1.04 04/29/18 22:08 APTT 29.1 Seconds (25.1-36.5) 04/29/18 22:08 - Constitutional Appears: Non-toxic, No Acute Distress - Head Exam Head Exam: ATRAUMATIC, NORMOCEPHALIC - Eye Exam Eye Exam: EOMI - ENT Exam ENT Exam: Mucous Membranes Moist - Respiratory Exam Respiratory Exam: NORMAL BREATHING PATTERN - Cardiovascular Exam Cardiovascular Exam: +S1, +S2 - GI/Abdominal Exam GI & Abdominal Exam: Firm, Guarding, Rigid, Soft, Tenderness Additional comments: Inscisions well approximated non erythematous non draining - Neurological Exam Neurological Exam: Alert, Awake - Psychiatric Exam Psychiatric exam: Normal Affect, Normal Mood - Skin Skin Exam: Dry, Intact Assessment and Plan - Assessment and Plan (Free Text) Assessment: 78F POD#2 s/p hand assisted laparoscopic right hemicolectomy Plan: Replete electrolytes as needed Advance to regular diet Monitor for bowel function Encourage ambulation Encourage incentive spirometer use PRN pain and nausea medication Further recs per Dr. Francis Cano PGY3
[2018-05-02] MEDS ORDERED: Potassium Phosphate 30 MMOLE in Sodium Chloride 0.9% 500 ML IVPB ONE (15:57)
[2018-05-02] MEDS ORDERED: Potassium Phosphate 15 MMOLE in Sodium Chloride 0.9% 250 ML IVPB ONE (15:57)
[2018-05-02] MEDS ORDERED: Potassium & Sodium Phosphate PO ONE (15:57)
--- NOTE | 2018-05-02 19:25 | CP.PCM.PN ---
<Joe Lin - Last Filed: 05/02/18 19:21> Subjective - Date & Time of Evaluation Date of Evaluation: 05/02/18 Time of Evaluation: 07:25 - Subjective Subjective: Joe Lin DO PGY-1, Internal Medicine Resident. Hospitalist Progress Note Patient seen and examined at bedside. Patient is POD#2 s/p laparscoptic colectomy with ileotransverse anastomosis and umbilical hernia repair. She is resting in bed. He did not have bowel movement yet but passed gas . No acute events overnight. Patient denied SOB, CP, palpitations, headache, fever. ROS is otherwise negative Objective - Vital Signs/Intake and Output Vital Signs (last 24 hours): Temp Pulse Resp BP Pulse Ox 98.8 F 60 20 127/81 95 05/02/18 17:57 05/02/18 17:57 05/02/18 17:57 05/02/18 17:57 05/02/18 17:57 Intake and Output: 05/02/18 05/03/18 18:59 06:59 Intake Total 1386 Output Total 1600 Balance -214 - Medications Medications: Current Medications Acetaminophen (Tylenol 650mg/20.3ml Solution Ud) 650 mg PO Q6H PRN PRN Reason: Pain, Mild (1-3) Last Admin: 05/01/18 15:11 Dose: 650 mg Benzocaine/Menthol (Cepacol Sore Throat) 1 jacob MT Q2H PRN PRN Reason: Sore Throat Last Admin: 05/01/18 11:50 Dose: 1 jacob Donepezil HCl (Aricept) 5 mg PO HS JO ANN Last Admin: 05/01/18 21:13 Dose: 5 mg Enoxaparin Sodium (Lovenox) 30 mg SC DAILY JO ANN PRN Reason: Protocol Last Admin: 05/02/18 09:30 Dose: 30 mg Potassium Phosphate 30 mmole/ (Sodium Chloride) 510 mls @ 63.75 mls/hr IVPB ONCE ONE Stop: 05/02/18 23:56 Last Admin: 05/02/18 16:59 Dose: 63.75 mls/hr Losartan Potassium (Cozaar) 50 mg PO DAILY JO ANN Last Admin: 05/02/18 09:28 Dose: 50 mg Oxycodone/Acetaminophen (Percocet 5/325 Mg Tab) 1 tab PO Q6H PRN PRN Reason: Pain, severe (8-10) Stop: 05/05/18 07:39 Last Admin: 05/02/18 09:29 Dose: 1 tab Pantoprazole Sodium (Protonix Ec Tab) 20 mg PO 0600 JO ANN Last Admin: 05/02/18 06:24 Dose: 20 mg - Labs Labs: 05/02/18 05:40 05/02/18 05:40 PT 11.9 SECONDS (9.4-12.5) 04/29/18 22:08 INR 1.04 04/29/18 22:08 APTT 29.1 Seconds (25.1-36.5) 04/29/18 22:08 - Additional Findings Additional findings: - Constitutional Appears: Well, No Acute Distress - Head Exam Head Exam: ATRAUMATIC, NORMAL INSPECTION, NORMOCEPHALIC - Eye Exam Eye Exam: EOMI, Normal appearance, PERRL Pupil Exam: NORMAL ACCOMODATION, PERRL - ENT Exam ENT Exam: Mucous Membranes Moist, Normal Exam - Neck Exam Neck Exam: Full ROM, Normal Inspection. absent: Lymphadenopathy - Respiratory Exam Respiratory Exam: Clear to Ausculation Bilateral, NORMAL BREATHING PATTERN - Cardiovascular Exam Cardiovascular Exam: REGULAR RHYTHM, +S1, +S2. absent: Murmur - GI/Abdominal Exam GI & Abdominal Exam: Soft, Normal Bowel Sounds Additional comments: No tenderness to light palpation. Laproscopic surgical site on midline upper abdomen is covered with dressing, no surrounding erythema or bleeding or fluid. No ecchymosis. - Extremities Exam Extremities Exam: Full ROM, Normal Capillary Refill, Normal Inspection. absent : Joint Swelling, Pedal Edema - Back Exam Back Exam: NORMAL INSPECTION - Neurological Exam Neurological Exam: Alert, Awake, CN II-XII Intact, Normal Gait, Oriented x3 - Psychiatric Exam Psychiatric exam: Normal Affect, Normal Mood - Skin Skin Exam: Dry, Intact, Normal Color, Warm Assessment and Plan - Assessment and Plan (Free Text) Assessment: 78 year old female with PMH of colon cancer and HTN presenting to the hospital for generalized weakness, nausea and atypical chest discomfort after bowel prep antibiotic administration. Patient admitted for medical management and scheduled laparscopic partial colectomy. Plan: s/p laparscopic partial colectomy and abdominal hernia repair -POD#2 -surgical site is clean. dressing applied. no signs of infection. no erythema -patient did not have bowel movement yet but passed gas -Diet advanced to regular -waiting for clearing by surgery team -Tylenol for mild pain prn -Percocet for severe pain prn -continue IVF -D/C tomorrow HTN -continue home losartan -BP controlled PPX with protonix Lovenox 30mg daily Case reviewed and plan discussed with Dr. Malloy <Ish Malloy - Last Filed: 05/03/18 07:46> Objective - Vital Signs/Intake and Output Vital Signs (last 24 hours): Temp Pulse Resp BP Pulse Ox 98.8 F 60 20 127/81 95 05/02/18 17:57 05/02/18 17:57 05/02/18 17:57 05/02/18 17:57 05/02/18 17:57 - Medications Medications: Current Medications Acetaminophen (Tylenol 650mg/20.3ml Solution Ud) 650 mg PO Q6H PRN PRN Reason: Pain, Mild (1-3) Last Admin: 05/01/18 15:11 Dose: 650 mg Benzocaine/Menthol (Cepacol Sore Throat) 1 jacob MT Q2H PRN PRN Reason: Sore Throat Last Admin: 05/01/18 11:50 Dose: 1 jacob Donepezil HCl (Aricept) 5 mg PO HS JO ANN Last Admin: 05/02/18 22:15 Dose: 5 mg Enoxaparin Sodium (Lovenox) 30 mg SC DAILY [facility] PRN Reason: Protocol Last Admin: 05/02/18 09:30 Dose: 30 mg Losartan Potassium (Cozaar) 50 mg PO DAILY [facility] Last Admin: 05/02/18 09:28 Dose: 50 mg Oxycodone/Acetaminophen (Percocet 5/325 Mg Tab) 1 tab PO Q6H PRN PRN Reason: Pain, severe (8-10) Stop: 05/05/18 07:39 Last Admin: 05/02/18 09:29 Dose: 1 tab Pantoprazole Sodium (Protonix Ec Tab) 20 mg PO 0600 [facility] Last Admin: 05/02/18 06:24 Dose: 20 mg - Labs Labs: 05/03/18 06:00 05/03/18 06:00 PT 11.9 SECONDS (9.4-12.5) 04/29/18 22:08 INR 1.04 04/29/18 22:08 APTT 29.1 Seconds (25.1-36.5) 04/29/18 22:08 Attending/Attestation - Attestation I have personally seen and examined this patient.: Yes I have fully participated in the care of the patient.: Yes I have reviewed all pertinent clinical information, including history, physical exam and plan: Yes Notes (Text): 05/02/18 78 year old female with past medical history of colon cancer and hypertension who presented with atypical chest pain and nausea after bowel prep administration for planned colectomy procedure. Serial cardiac enzymes were negative and ACS was ruled out. Cardiology evaluation was appreciated. Echocardiogram was reviewed; preserved EF. Chest pain is resolved. Surgery evaluation was also appreciated; patient is s/p laparoscopic partial colectomy POD #2. Monitor for bowel movements. She is passing flatus but now BM as of this morning. Advance diet as tolerated as per surgery. Dilaudid is switched to percocet prn. Encouraged incentive spirometer. Encouraged out of bed to chair. Patient is on losartan for hypertension. Anticipate d/c planning possibly tomorrow if cleared by surgery. Ish Malloy MD Hospitalist.
[2018-05-03 06:32] LABS: BASO # 0.03 K/mm3 (0.0-2.0); BASO % 0.4 % (0.0-3.0); EOS # 0.4 (0.0-0.7); EOS % 4.8 % (1.5-5.0); GRAN # 4.83 (1.4-6.5); GRAN % 59.3 % (50.0-68.0); HEMOGLOBIN 13.1 g/dL (12.0-16.0); LYMPH # 2.1 (1.2-3.4); MEAN CORPUSCULAR HEMOGLOBIN 29.5 pg (25.0-35.0); MEAN CORPUSCULAR HGB CONC 33.2 g/dl (31.0-37.0); MEAN PLATELET VOLUME 10.3 fl (7.0-11.0); MONO # 0.8 (0.1-0.6); MONO % 9.5 % (1.0-6.0); RBC 4.44 10^6/uL (3.5-6.1); RED CELL DISTRIBUTION WIDTH 14.3 % (11.5-14.5); WHITE BLOOD COUNT 8.1 10^3/ul (4.5-11.0)
[2018-05-03 06:55] LABS: ALB/GLOB RATIO 1.2 (1.1-1.8); ALBUMIN 3.5 g/dL (3.0-4.8); ALT/SGPT 17 U/L (7-56); AST/SGOT 30 U/L (14-36); BLOOD UREA NITROGEN 6 mg/dL (7-21); CALCIUM 8.7 mg/dL (8.4-10.5); GFR NON-AFRICAN AMERICAN > 60
--- NOTE | 2018-05-03 07:22 | CP.PCM.PN ---
Subjective - Date & Time of Evaluation Date of Evaluation: 05/03/18 Time of Evaluation: 06:45 - Subjective Subjective: awake,denies chest pain.no distress Reason for consultation and follow up: Cardiac evaluation of chest pain,cardiac clearance for surgery, follow up status post laparoscopic colectomy and repair of umbilical hernia.History of colon cancer and hypertension. Seen and examined by me and Dr. Katz Objective - Vital Signs/Intake and Output Vital Signs (last 24 hours): Temp Pulse Resp BP Pulse Ox 98.8 F 60 20 127/81 95 05/02/18 17:57 05/02/18 17:57 05/02/18 17:57 05/02/18 17:57 05/02/18 17:57 - Medications Medications: Current Medications Acetaminophen (Tylenol 650mg/20.3ml Solution Ud) 650 mg PO Q6H PRN PRN Reason: Pain, Mild (1-3) Last Admin: 05/01/18 15:11 Dose: 650 mg Benzocaine/Menthol (Cepacol Sore Throat) 1 jacob MT Q2H PRN PRN Reason: Sore Throat Last Admin: 05/01/18 11:50 Dose: 1 jacob Donepezil HCl (Aricept) 5 mg PO HS JO ANN Last Admin: 05/02/18 22:15 Dose: 5 mg Enoxaparin Sodium (Lovenox) 30 mg SC DAILY [facility] PRN Reason: Protocol Last Admin: 05/02/18 09:30 Dose: 30 mg Losartan Potassium (Cozaar) 50 mg PO DAILY [facility] Last Admin: 05/02/18 09:28 Dose: 50 mg Oxycodone/Acetaminophen (Percocet 5/325 Mg Tab) 1 tab PO Q6H PRN PRN Reason: Pain, severe (8-10) Stop: 05/05/18 07:39 Last Admin: 05/02/18 09:29 Dose: 1 tab Pantoprazole Sodium (Protonix Ec Tab) 20 mg PO 0600 [facility] Last Admin: 05/02/18 06:24 Dose: 20 mg - Labs Labs: 05/03/18 06:00 05/03/18 06:00 PT 11.9 SECONDS (9.4-12.5) 04/29/18 22:08 INR 1.04 04/29/18 22:08 APTT 29.1 Seconds (25.1-36.5) 04/29/18 22:08 - Constitutional Appears: No Acute Distress - Eye Exam Eye Exam: Normal appearance - ENT Exam ENT Exam: Mucous Membranes Moist - Respiratory Exam Respiratory Exam: Clear to Ausculation Bilateral, NORMAL BREATHING PATTERN - Cardiovascular Exam Cardiovascular Exam: +S1, +S2 - GI/Abdominal Exam GI & Abdominal Exam: Soft, Normal Bowel Sounds Additional comments: lap sites with dermabond - Extremities Exam Extremities Exam: Normal Capillary Refill - Neurological Exam Neurological Exam: Alert, Awake, Oriented x3 - Psychiatric Exam Psychiatric exam: Normal Affect - Skin Skin Exam: Dry, Warm Assessment and Plan - Assessment and Plan (Free Text) Assessment: A 78 year old who came in to the ER due to weakness,nausea,vomiting and vague chest discomfort. She was taking golyte for bowel prep for colectomy the following day.History of colon cancer, hypertension. Atypical chest discomfort. No evidence of ischemia, troponin normal.Cleared for surgery yesterday.Status post laparoscopic colectomy and repair of umbilical hernia POD#3. Stable. Plan: Cardiac status stable Heart rate and blood pressure controlled Status post lap colectomy and umbilical hernia repair POD#3 Ambulating to bathroom, able to pass flatus Tolerating diet, no nausea or vomiting Denies chest pain and shortness of breath Continue current treatment Continue current medications OOB to chair,encourage ambulation Discharge planning Possible discharge today Will follow up Plan and treatment discussed with Dr. Katz
--- NOTE | 2018-05-03 07:56 | CP.PCM.PN ---
Subjective - Date & Time of Evaluation Date of Evaluation: 05/03/18 Time of Evaluation: 07:15 - Subjective Subjective: Marco Toure DO, PGY-1 Surgery Progress Note for Dr. Blanco Patient was seen and examined this AM with surgery team. She has been tolerating regular diet well without n/v. She had a soft BM yesterday and is passing gas. She has some pain around the incision but states this is controlled with PO pain medications. She feels ready to go home. Objective - Vital Signs/Intake and Output Vital Signs (last 24 hours): Temp Pulse Resp BP Pulse Ox 98.8 F 60 20 127/81 95 05/02/18 17:57 05/02/18 17:57 05/02/18 17:57 05/02/18 17:57 05/02/18 17:57 - Medications Medications: Current Medications Acetaminophen (Tylenol 650mg/20.3ml Solution Ud) 650 mg PO Q6H PRN PRN Reason: Pain, Mild (1-3) Last Admin: 05/01/18 15:11 Dose: 650 mg Benzocaine/Menthol (Cepacol Sore Throat) 1 jacob MT Q2H PRN PRN Reason: Sore Throat Last Admin: 05/01/18 11:50 Dose: 1 jacob Donepezil HCl (Aricept) 5 mg PO HS JO ANN Last Admin: 05/02/18 22:15 Dose: 5 mg Enoxaparin Sodium (Lovenox) 30 mg SC DAILY [facility] PRN Reason: Protocol Last Admin: 05/02/18 09:30 Dose: 30 mg Losartan Potassium (Cozaar) 50 mg PO DAILY [facility] Last Admin: 05/02/18 09:28 Dose: 50 mg Oxycodone/Acetaminophen (Percocet 5/325 Mg Tab) 1 tab PO Q6H PRN PRN Reason: Pain, severe (8-10) Stop: 05/05/18 07:39 Last Admin: 05/02/18 09:29 Dose: 1 tab Pantoprazole Sodium (Protonix Ec Tab) 20 mg PO 0600 [facility] Last Admin: 05/02/18 06:24 Dose: 20 mg - Labs Labs: 05/03/18 06:00 05/03/18 06:00 PT 11.9 SECONDS (9.4-12.5) 04/29/18 22:08 INR 1.04 04/29/18 22:08 APTT 29.1 Seconds (25.1-36.5) 04/29/18 22:08 - Constitutional Appears: Non-toxic, No Acute Distress - Head Exam Head Exam: ATRAUMATIC, NORMAL INSPECTION - Eye Exam Eye Exam: Normal appearance - ENT Exam ENT Exam: Mucous Membranes Moist - Neck Exam Neck Exam: Full ROM, Normal Inspection - Respiratory Exam Respiratory Exam: absent: Accessory Muscle Use, Respiratory Distress - Cardiovascular Exam Cardiovascular Exam: +S1, +S2 - GI/Abdominal Exam GI & Abdominal Exam: Soft. absent: Distended, Guarding, Tenderness, Rebound Additional comments: surgical wound clean, dry, and intact - Extremities Exam Extremities Exam: Normal Inspection - Neurological Exam Neurological Exam: Alert, Awake, Oriented x3 - Psychiatric Exam Psychiatric exam: Normal Affect, Normal Mood - Skin Skin Exam: Dry, Intact, Normal Color, Warm Assessment and Plan - Assessment and Plan (Free Text) Assessment: 78F s/p hand assisted laparoscopic right hemicolectomy POD 3. Plan: -Tolerating regular diet well without n/v -BM x 1, flatus -Has been ambulating well and using IS -Clear for discharge from surgical standpoint -At home she is able to shower but no pools, baths, hot-tubs -No heavy lifting (> 10 lbs) for 6 weeks -Follow up with Dr. Blanco in 2 weeks Case and plan discussed with Dr. Francis Toure DO Resident PGY-1
[2018-05-03 08:51] VITALS: BP 140/90; PULSE 70; TEMP 97.9; O2SAT 96
[2018-05-03] MEDS: Enoxaparin 30 mg Syringe SC SCH (09:14)
[2018-05-03] MEDS: Oxycodone/Acetaminophen 5/325 mg Tab PO PRN (09:15)
--- NOTE | 2018-05-03 11:40 | CP.PCM.DIS ---
<Joe Lin - Last Filed: 05/06/18 17:10> Provider - Provider Date of Admission: 04/30/18 08:42 Attending physician: Ish Malloy MD Primary care physician: Becki Kim MD Consults: cardiology surgery Time Spent in preparation of Discharge (in minutes): 55 Hospital Course - Lab Results Lab Results: Most Recent Lab Values WBC 8.1 10^3/ul (4.5-11.0) 05/03/18 06:00 RBC 4.44 10^6/uL (3.5-6.1) 05/03/18 06:00 Hgb 13.1 g/dL (12.0-16.0) 05/03/18 06:00 Hct 39.5 % (36.0-48.0) 05/03/18 06:00 MCV 89.0 fl (80.0-105.0) 05/03/18 06:00 MCH 29.5 pg (25.0-35.0) 05/03/18 06:00 MCHC 33.2 g/dl (31.0-37.0) 05/03/18 06:00 RDW 14.3 % (11.5-14.5) 05/03/18 06:00 Plt Count 254 10^3/uL (120.0-450.0) 05/03/18 06:00 MPV 10.3 fl (7.0-11.0) 05/03/18 06:00 Gran % 59.3 % (50.0-68.0) 05/03/18 06:00 Lymph % (Auto) 26.0 % (22.0-35.0) 05/03/18 06:00 [place] % (Auto) 9.5 % (1.0-6.0) H 05/03/18 06:00 Eos % (Auto) 4.8 % (1.5-5.0) 05/03/18 06:00 Baso % (Auto) 0.4 % (0.0-3.0) 05/03/18 06:00 Gran # 4.83 (1.4-6.5) 05/03/18 06:00 Lymph # (Auto) 2.1 (1.2-3.4) 05/03/18 06:00 [place] # (Auto) 0.8 (0.1-0.6) H 05/03/18 06:00 Eos # (Auto) 0.4 (0.0-0.7) 05/03/18 06:00 Baso # (Auto) 0.03 K/mm3 (0.0-2.0) 05/03/18 06:00 PT 11.9 SECONDS (9.4-12.5) 04/29/18 22:08 INR 1.04 04/29/18 22:08 APTT 29.1 Seconds (25.1-36.5) 04/29/18 22:08 Sodium 139 mmol/L (132-148) 05/03/18 06:00 Potassium 4.1 mmol/L (3.6-5.0) 05/03/18 06:00 Chloride 105 mmol/L (98-107) 05/03/18 06:00 Carbon Dioxide 26 mmol/L (21-33) 05/03/18 06:00 Anion Gap 13 (10-20) 05/03/18 06:00 BUN 6 mg/dL (7-21) L 05/03/18 06:00 Creatinine 0.7 mg/dl (0.7-1.2) 05/03/18 06:00 Est GFR ( Amer) > 60 05/03/18 06:00 Est GFR (Non-Af Amer) > 60 05/03/18 06:00 Random Glucose 93 mg/dL (70-110) 05/03/18 06:00 Hemoglobin A1c 5.7 % (4.2-6.5) 05/02/18 05:40 Calcium 8.7 mg/dL (8.4-10.5) 05/03/18 06:00 Phosphorus 3.7 mg/dL (2.5-4.5) 05/03/18 05:30 Magnesium 1.8 mg/dL (1.7-2.2) 05/03/18 05:30 Total Bilirubin 1.3 mg/dL (0.2-1.3) 05/03/18 06:00 AST 30 U/L (14-36) 05/03/18 06:00 ALT 17 U/L (7-56) 05/03/18 06:00 Alkaline Phosphatase 82 U/L (38-126) 05/03/18 06:00 Lactate Dehydrogenase 469 U/L (333-699) 04/29/18 22:08 Total Creatine Kinase 83 U/L (35-230) 04/29/18 22:08 Troponin I < 0.01 ng/mL 04/30/18 20:30 Total Protein 6.5 g/dL (5.8-8.3) 05/03/18 06:00 Albumin 3.5 g/dL (3.0-4.8) 05/03/18 06:00 Globulin 3.0 gm/dL 05/03/18 06:00 Albumin/Globulin Ratio 1.2 (1.1-1.8) 05/03/18 06:00 Triglycerides 55 mg/dL (35-160) 05/01/18 06:00 Cholesterol 127 mg/dL (130-200) L 05/01/18 06:00 LDL Cholesterol Direct 65 mg/dL (0-129) 05/01/18 06:00 HDL Cholesterol 41 mg/dL (29-60) 05/01/18 06:00 TSH 3rd Generation 3.80 mIU/mL (0.46-4.68) 05/02/18 05:40 Blood Type Confirm O POSITIVE 05/03/18 06:00 - Hospital Course Hospital Course: Hospital course: 78 year old female with PMH of colon cancer and HTN presenting to the hospital for generalized weakness, nausea and atypical chest discomfort after bowel prep antibiotic administration. Patient admitted for medical management and scheduled laparscopic partial colectomy. Serial cardiac enzymes were negative and ACS was ruled out. Patient was cleared for surgery by cardiology . Echocardiogram showed preserved EF. Patient was doing well s/p laparoscopic partial colectomy. Post operative pain was controlled with pain medication. Patient has hypertension that was managed during admission. She had bowel movement and passed flatus and was ready for discharge. On discharge: -Please follow up with your primary care physician within one week of discharge -please resume your home medications -Please take medications as prescribed, Percocet for pain as needed and over the counter medication Miralax and colace for constipation -Please go to nearest emergency department if you have any bleeding, infection at surgical site or fever Discharge Exam - Head Exam Head Exam: ATRAUMATIC, NORMAL INSPECTION - Eye Exam Eye Exam: EOMI, Normal appearance, PERRL Pupil Exam: NORMAL ACCOMODATION, PERRL - ENT Exam ENT Exam: Normal Oropharynx - Neck Exam Neck exam: Normal Inspection - Respiratory Exam Respiratory Exam: Clear to PA & Lateral, NORMAL BREATHING PATTERN - Cardiovascular Exam Cardiovascular Exam: REGULAR RHYTHM, +S1, +S2 - GI/Abdominal Exam GI & Abdominal Exam: Normal Bowel Sounds, Soft - Rectal Exam Rectal Exam: NORMAL INSPECTION - Extremities Exam Extremities exam: normal capillary refill, pedal pulses present - Back Exam Back exam: FULL ROM - Neurological Exam Neurological exam: Alert, CN II-XII Intact, Normal Gait, Oriented x3, Reflexes Normal - Psychiatric Exam Psychiatric exam: Normal Affect, Normal Mood - Skin Skin Exam: Dry, Intact, Normal Color, Warm Discharge Plan - Discharge Medications Prescriptions: oxyCODONE/Acetaminophen [Percocet 5/325 mg Tab] 1 tab PO Q6H PRN #12 tab PRN Reason: Pain, Severe (8-10) - Follow Up Plan Condition: STABLE Disposition: HOME/ ROUTINE Instructions: Colectomy, Laparoscopic Surgery Additional Instructions: -Please follow up with your primary care physician within one week of discharge -please resume your home medications -Please take medications as prescribed, Percocet for pain as needed and over the counter medication Miralax and colace for constipation -Please go to nearest emergency department if you have any bleeding, infection at surgical site or fever Referrals: Kristian Blanco MD [Staff Provider] - Becki Mtz MD [Primary Care Provider] - <Ish Malloy - Last Filed: 05/06/18 19:51> Provider - Provider Date of Admission: 04/30/18 08:42 Attending physician: Ish Malloy MD Primary care physician: Becki Kim MD Hospital Course - Lab Results Lab Results: Most Recent Lab Values WBC 8.1 10^3/ul (4.5-11.0) 05/03/18 06:00 RBC 4.44 10^6/uL (3.5-6.1) 05/03/18 06:00 Hgb 13.1 g/dL (12.0-16.0) 05/03/18 06:00 Hct 39.5 % (36.0-48.0) 05/03/18 06:00 MCV 89.0 fl (80.0-105.0) 05/03/18 06:00 MCH 29.5 pg (25.0-35.0) 05/03/18 06:00 MCHC 33.2 g/dl (31.0-37.0) 05/03/18 06:00 RDW 14.3 % (11.5-14.5) 05/03/18 06:00 Plt Count 254 10^3/uL (120.0-450.0) 05/03/18 06:00 MPV 10.3 fl (7.0-11.0) 05/03/18 06:00 Gran % 59.3 % (50.0-68.0) 05/03/18 06:00 Lymph % (Auto) 26.0 % (22.0-35.0) 05/03/18 06:00 [place] % (Auto) 9.5 % (1.0-6.0) H 05/03/18 06:00 Eos % (Auto) 4.8 % (1.5-5.0) 05/03/18 06:00 Baso % (Auto) 0.4 % (0.0-3.0) 05/03/18 06:00 Gran # 4.83 (1.4-6.5) 05/03/18 06:00 Lymph # (Auto) 2.1 (1.2-3.4) 05/03/18 06:00 [place] # (Auto) 0.8 (0.1-0.6) H 05/03/18 06:00 Eos # (Auto) 0.4 (0.0-0.7) 05/03/18 06:00 Baso # (Auto) 0.03 K/mm3 (0.0-2.0) 05/03/18 06:00 PT 11.9 SECONDS (9.4-12.5) 04/29/18 22:08 INR 1.04 04/29/18 22:08 APTT 29.1 Seconds (25.1-36.5) 04/29/18 22:08 Sodium 139 mmol/L (132-148) 05/03/18 06:00 Potassium 4.1 mmol/L (3.6-5.0) 05/03/18 06:00 Chloride 105 mmol/L (98-107) 05/03/18 06:00 Carbon Dioxide 26 mmol/L (21-33) 05/03/18 06:00 Anion Gap 13 (10-20) 05/03/18 06:00 BUN 6 mg/dL (7-21) L 05/03/18 06:00 Creatinine 0.7 mg/dl (0.7-1.2) 05/03/18 06:00 Est GFR ( Amer) > 60 05/03/18 06:00 Est GFR (Non-Af Amer) > 60 05/03/18 06:00 Random Glucose 93 mg/dL (70-110) 05/03/18 06:00 Hemoglobin A1c 5.7 % (4.2-6.5) 05/02/18 05:40 Calcium 8.7 mg/dL (8.4-10.5) 05/03/18 06:00 Phosphorus 3.7 mg/dL (2.5-4.5) 05/03/18 05:30 Magnesium 1.8 mg/dL (1.7-2.2) 05/03/18 05:30 Total Bilirubin 1.3 mg/dL (0.2-1.3) 05/03/18 06:00 AST 30 U/L (14-36) 05/03/18 06:00 ALT 17 U/L (7-56) 05/03/18 06:00 Alkaline Phosphatase 82 U/L (38-126) 05/03/18 06:00 Lactate Dehydrogenase 469 U/L (333-699) 04/29/18 22:08 Total Creatine Kinase 83 U/L (35-230) 04/29/18 22:08 Troponin I < 0.01 ng/mL 04/30/18 20:30 Total Protein 6.5 g/dL (5.8-8.3) 05/03/18 06:00 Albumin 3.5 g/dL (3.0-4.8) 05/03/18 06:00 Globulin 3.0 gm/dL 05/03/18 06:00 Albumin/Globulin Ratio 1.2 (1.1-1.8) 05/03/18 06:00 Triglycerides 55 mg/dL (35-160) 05/01/18 06:00 Cholesterol 127 mg/dL (130-200) L 05/01/18 06:00 LDL Cholesterol Direct 65 mg/dL (0-129) 05/01/18 06:00 HDL Cholesterol 41 mg/dL (29-60) 05/01/18 06:00 TSH 3rd Generation 3.80 mIU/mL (0.46-4.68) 05/02/18 05:40 Blood Type Confirm O POSITIVE 05/03/18 06:00 Attending/Attestation - Attestation I have personally seen and examined this patient.: Yes I have fully participated in the care of the patient.: Yes I have reviewed all pertinent clinical information, including history, physical exam and plan: Yes Notes (Text): 78 year old female with past medical history of colon cancer and hypertension who presented with atypical chest pain and nausea after bowel prep administration for planned colectomy procedure. Serial cardiac enzymes were negative and ACS was ruled out. Cardiology evaluation was appreciated. Echocardiogram was reviewed; preserved EF. Chest pain is resolved. Patient was also seen by surgery and is s/p laparoscopic partial colectomy POD # 3. She is now passing flatus and having BM. She is tolerating diet and cleared for discharge by surgery. Patient is discharged home. Follow up with pmd. Follow up with surgery. Ish Malloy MD Hospitalist.
--- NOTE | 2018-05-16 01:41 | OP ---
PROCEDURE DATE: 04/30/2018 PREOPERATIVE DIAGNOSES: 1. Right colon cancer. 2. Incarcerated umbilical hernia. POSTOPERATIVE DIAGNOSES: 1. Right colon cancer. 2. Incarcerated umbilical hernia. PROCEDURE PERFORMED: 1. Laparoscopic right colectomy with anastomosis. 2. Repair of the incarcerated umbilical hernia without mesh. SURGEON: Kristian Blanco MD. SIGNAL MAINTAINER: Benjy Cano DO. ANESTHESIOLOGIST: Jean Burdick MD. ANESTHESIA: General endotracheal anesthesia. ESTIMATED BLOOD LOSS: Minimal. SPECIMEN: Right colon. INDICATIONS: The patient is a 78-year-old female who was seen in the office with referral from GI Service for right colon cancer. The patient had colonoscopy, which revealed the presence of adenocarcinoma of the right colon. The patient was scheduled for right colectomy. The patient was also noted on the exam to have an incarcerated umbilical hernia. DESCRIPTION OF PROCEDURE: The patient was brought to the operating room and placed on the operating room in the supine position. The patient was connected to the EKG, blood pressure and pulse oximetry monitors. The patient was then modified to the lithotomy position and was prepped and draped in the usual sterile fashion. First, a standard time-out procedure took place when everybody in the room agreed as to the patient's identity, diagnoses and procedure to be performed. Once this was completed, we then proceeded with surgery. First, a small incision was made superior to the umbilicus in a vertical fashion and a Veress needle was inserted through this incision into the abdominal cavity. Once pneumoperitoneum was obtained, a 12-mm trocar was inserted into the abdominal cavity and careful evaluation revealed the presence of a normal-looking bowel as well as normal-looking liver. There was no evidence of thickening of any bowel or abnormal lesions throughout the abdomen. The umbilical hernia appeared to be containing an incarcerated preperitoneal fat. We then proceeded with placing a 5 mm trocar lateral to the left rectus muscle, one in the left lower quadrant and the other one slightly above the umbilicus level distal to the rectus muscle on the left side. Once those were inflated, I then proceeded with dissection of the ileocolic artery. It was first stretched out and identified in the mesentery. A small incision was made in the peritoneum of that portion of the mesentery and the vessel was carefully dissected out at its takeoff from the superior mesenteric artery. Both the vein and the artery were identified as well as two lymph nodes adjacent to it. The lymph nodes were swept together with the specimen and the proximal ileocolic artery as well as the ileocolic vein were clipped with 5 mm clips as well as transected using Harmonic scalpel. Once this was done, we then proceeded with mobilization of the right colic mesentery along with borders posteriorly up towards the duodenum, which was exposed as the mesentery was elevated off it towards the hepatic flexure, then down towards the ileocecal valve. The small bowel mesentery was also freed by incising the peritoneum inferiorly and allowing the whole mesentery to be elevated off the retroperitoneum. Once this was completed and the side branches of the ileocolic artery towards the small bowel were transected all the way down to the small bowel approximately 10 mm proximal to the ileocecal valve. I then proceeded with mobilization of the right colon by transected the peritoneum along paracolic gutter and dissecting through the hepatocolic ligament. Once the hepatic flexure was mobilized, I then proceeded with transecting the omentum off the transverse colon and mobilizing the adhesions of the colon to the stomach and entered the lesser sac of the abdominal cavity. Then, the right side of the transverse colon was carefully mobilized with visualization of the transverse colic artery. The mesentery was then carefully transected using Harmonic scalpel along the border of the transverse colic artery and included the right branch of that artery. Now, the entire right colon on the right side through the hepatic flexure as well as the proximal portion of the small bowel were mobilized. When then proceeded with opening of the abdominal cavity slightly larger through the previous port insertion site in the midline for about 6 cm and proceeded with pulling out the specimen through that opening. The specimen was palpated and was noted to have lesion of the ileocecal valve. The proximal small bowel about 10 cm to the ileocecal valve was then transected using ELSA stapler and the right colon at about proximal portion of the transverse colon was also transected using ELSA stapler. The two ends were now connected using staplers in a side to side fashion and the anastomosis was created. The mesenteric defect was sutured under direct visualization using 3-0 silk and the specimen was returned into the abdominal cavity after the crotch of the anastomosis was sutured with another 3-0 silk stitch. The abdominal cavity was again reevaluated and was noted to have no evidence of any significant bleeding. The visualized organs appeared to be within the normal limits. At this point, my attention was turned to the incarcerated umbilical hernia, which was carefully incised under direct vision along the umbilicus. The hernia sac was identified, carefully elevated and transected and some of the hernia sac fat being removed and some of the abdominal cavity. The hernia itself was sutured using #1 PDS stitch in [id number] fashion. Once this defect was completely closed, I then proceeded with closure of the midline incision form the extraction site using PDS stitch. Once this was closed, the subcutaneous tissues were reapproximated using 3-0 Vicryl after the wound was copiously irrigated and the skin was closed using 4-0 Monocryl. The trocar sites of the 5 mm trocars were also closed using 3-0 Vicryl and 4-0 Monocryl. A sterile Dermabond dressing was applied to all the wounds. The patient tolerated the procedure well and there were no complications. The patient was awakened and transferred to the recovery room for further observation. Kristian Blanco MD
== END 2018-05-03 17:40 | disposition home or self-care (01) | DRG 330 ==
LOC: ED 21:08 → ERH 23:23 → 3RSO 04-30 02:11 → OBSVTOIN 04-30 08:42
PROVIDERS: ADMIT Internal Medicine; ATTEND Internal Medicine
PROC: 0WQF4ZZ Repair Abdominal Wall, Percutaneous Endoscopic Approach (ICD-10-PCS; 2018-04-30)
PROC: 0DTF4ZZ Resection of Right Large Intestine, Percutaneous Endoscopic Approach (ICD-10-PCS; principal; 2018-04-30 09:30)
DX: C18.2 Malignant neoplasm of ascending colon (principal); K42.0 Umbilical hernia with obstruction, without gangrene; R07.89 Other chest pain; I10 Essential (primary) hypertension; I45.10 Unspecified right bundle-branch block

== ENCOUNTER 2018-05-27 11:44 | Emergency (ER) | payer MEDICARE, OTHER ==
[2018-05-27 11:44] VITALS: BMI 25.6
[2018-05-27] MEDS ORDERED: Sodium Chloride 0.9% 1,000 ML IV SCH (12:45)
--- NOTE | 2018-05-27 12:49 | ED PDOC ---
Arrival/HPI - General Chief Complaint: Abdominal Pain Time Seen by Provider: 05/27/18 12:04 Historian: Patient - History of Present Illness Narrative History of Present Illness (Text): 05/27/18 12:46 78 year old female, whose past medical history includes colon cancer, partial colectomy, and hypertension, who presents to the Emergency department complaining of rt sided abdominal pain x 1 day. Patient states pain is sharp, constant, 9/10, and worsens with movement. Patient denies any fever, chills, chest pain, shortness of breath, nausea, vomiting, diarrhea, back pain, neck pain, headache, dizziness, or any other complaints. Time/Duration: Other (1 day) Symptom Onset: Gradual Symptom Course: Unchanged Activities at Onset: Light Context: Home Past Medical History - Provider Review Nursing Documentation Reviewed: Yes - Infectious Disease Hx of Infectious Diseases: None - Reproductive Menopause: Yes - Cardiac Hx Hypertension: Yes - Pulmonary Hx Respiratory Disorders: No - Neurological Hx Neurological Disorder: No - HEENT Hx HEENT Disorder: No - Renal Hx Renal Disorder: No - Endocrine/Metabolic Hx Endocrine Disorders: No - Hematological/Oncological Hx Blood Disorders: No Hx Cancer: Yes (Colon) - Integumentary Hx Dermatological Disorder: No - Musculoskeletal/Rheumatological Hx Musculoskeletal Disorders: No - Gastrointestinal Hx Gastrointestinal Disorders: No Hx Bowel Surgery: No - Genitourinary/Gynecological Hx Genitourinary Disorders: No - Psychiatric Hx Psychophysiologic Disorder: No Hx Substance Use: No - Surgical History Other/Comment: abd surgery 05/30/18 removed cancerous tissue by Dr Shah - Anesthesia Hx Anesthesia: Yes Hx Anesthesia Reactions: No Hx Malignant Hyperthermia: No Family/Social History - Physician Review Nursing Documentation Reviewed: Yes Family/Social History: Unknown Family HX Smoking Status: Never Smoked Hx Alcohol Use: No Hx Substance Use: No Allergies/Home Meds Allergies/Adverse Reactions: Allergies No Known Allergies Allergy (Verified 04/29/18 21:32) Home Medications: Home Meds Medication Instructions Recorded Confirmed Donepezil HCl [Aricept] 5 mg PO HS 04/13/18 05/27/18 Losartan [Cozaar] 50 mg PO DAILY 04/13/18 05/27/18 Meloxicam [Mobic] 15 mg PO DAILY 04/13/18 05/27/18 Timolol [Betimol] 1 drop EACHEYE QAM 04/13/18 05/27/18 Review of Systems - Physician Review All systems were reviewed & negative as marked: Yes - Review of Systems Constitutional: Normal Eyes: Normal ENT: Normal Respiratory: Normal. absent: SOB, Cough Cardiovascular: Normal. absent: Chest Pain Gastrointestinal: Abdominal Pain (rt sided abdominal pain). absent: Diarrhea, Nausea, Vomiting Genitourinary Female: Normal. absent: Dysuria, Frequency, Hematuria Musculoskeletal: Normal. absent: Back Pain, Neck Pain Skin: Normal. absent: Rash Neurological: Normal. absent: Headache, Dizziness Endocrine: Normal Hemo/Lymphatic: Normal Psychiatric: Normal Physical Exam Vital Signs Reviewed: Yes Vital Signs Temp Pulse Resp BP Pulse Ox 05/27/18 12:42 98.4 F 65 16 152/68 H 97 Temperature: Afebrile Blood Pressure: Normal Pulse: Regular Respiratory Rate: Normal Appearance: Positive for: Well-Appearing, Non-Toxic, Comfortable Pain Distress: None Mental Status: Positive for: Alert and Oriented X 3 - Systems Exam Head: Present: Atraumatic, Normocephalic Pupils: Present: PERRL Extroacular Muscles: Present: EOMI Conjunctiva: Present: Normal Mouth: Present: Moist Mucous Membranes Neck: Present: Normal Range of Motion Respiratory/Chest: Present: Clear to Auscultation, Good Air Exchange. No: Respiratory Distress, Accessory Muscle Use Cardiovascular: Present: Regular Rate and Rhythm, Normal S1, S2. No: Murmurs Abdomen: Present: Tenderness (rt sided abdominal tenderness), Other (RLQ palpabl e mass). No: Distention, Peritoneal Signs Back: Present: Normal Inspection Upper Extremity: Present: Normal Inspection. No: Cyanosis, Edema Lower Extremity: Present: Normal Inspection. No: Edema Neurological: Present: GCS=15, CN II-XII Intact, Speech Normal Skin: Present: Warm, Dry, Normal Color. No: Rashes Psychiatric: Present: Alert, Oriented x 3, Normal Insight, Normal Concentration Medical Decision Making ED Course and Treatment: 05/27/18 12:50 Impression: 78 year old female presents to the Emergency department complaining of right sided abdominal pain. Differential Diagnosis included but are not limited to: obstruction vs abscess Plan: -- CT abd/pelvis -- Labs -- Toradol -- Sodium Chloride -- Reassess and disposition Progress Notes: 05/27/18 17:21 CT abdomen/pelvis reviewed, shows: IMPRESSION: There is mural thickening in the cecum with surrounding inflammatory changes. There is also some mural thickening in the terminal ileum. Findings are most consistent with colitis or inflammatory bowel disease. There is no evidence of abscess. Patient's Surgeon is Dr. Blanco so he was called after the CT results. His resident Milli Hernandez came to evaluate patient, reviewed CT and discussed case with DR. Blanco. As per resident, Dr. Blanco, recommended patient be discharged home with Tylenol and to call his office tomorrow for an appt this week. On reevaluation, patient feels much better. No pain at this time. Abdomen is soft, mild right lower quadrant tenderness, no guarding or rebound. No distention. Patient is tolerating PO fluids. He daughter will take her home. She was advised on follow up instructions and to return to the ED if symptoms worsen or any other concern. I offered language translation throughout this ED visit but patient prefers daughter for translation. - RAD Interpretation Radiology Orders: 05/27/18 12:39 ABD PELVIS PO & IV CONTRAST [CT] Stat - Medication Orders Current Medication Orders: Sodium Chloride (Sodium Chloride 0.9%) 1,000 mls @ 100 mls/hr IV .Q10H JO ANN Discontinued Medications Ketorolac Tromethamine (Toradol) 15 mg IVP STAT STA Stop: 05/27/18 12:41 - Scribe Statement The provider has reviewed the documentation as recorded by the Scribjono Murrieta All medical record entries made by the Scribe were at my direction and personally dictated by me. I have reviewed the chart and agree that the record accurately reflects my personal performance of the history, physical exam, medical decision making, and the department course for this patient. I have also personally directed, reviewed, and agree with the discharge instructions and disposition. Disposition/Present on Arrival - Present on Arrival Any Indicators Present on Arrival: No History of DVT/PE: No History of Uncontrolled Diabetes: No Urinary Catheter: No History of Decub. Ulcer: No History Surgical Site Infection Following: None - Disposition Have Diagnosis and Disposition been Completed?: Yes Diagnosis: Abdominal pain, Colitis Disposition: HOME/ ROUTINE Disposition Time: 18:17 Patient Plan: Discharge Condition: IMPROVED Discharge Instructions (ExitCare): Acute Abdomen (Belly Pain), Adult (DC) Additional Instructions: MELINDA HAMMONDS, thank you for letting us take care of you today. Your provider was Ron Monique DO and you were treated for ABDOMINAL PAINS. The emergency medical care you received today was directed at your acute symptoms. If you were prescribed any medication, please fill it and take as directed. It may take several days for your symptoms to resolve. Return to the Emergency Department if your symptoms worsen, do not improve, or if you have any other problems. Please contact your doctor or call one of the physicians/clinics you have been referred to that are listed on the Patient Visit Information form that is included in your discharge packet. Bring any paperwork you were given at discharge with you along with any medications you are taking to your follow up visit. Our treatment cannot replace ongoing medical care by a primary care provider outside of the emergency department. Thank you for allowing the [facility] team to be part of your care today. If you had an X-Ray or CT scan: A Radiologist will review the ED reading if any change in treatment is needed we will contact you. If you had a blood, urine, or wound culture: It will take several days for the results, if any change in treatment is needed we will contact you. If you had an STI test: It will take 48 hours for the results. Please call after 1 week if you have not heard back. Prescriptions: Acetaminophen [Tylenol Extra Strength] 500 mg PO Q4 #30 tablet Referrals: Kristian Blanco MD [Staff Provider] - Follow up with primary Melina Lewis DO [[facility]] - Follow up with primary Forms: [employer] (Congolese), WORK NOTE
[2018-05-27] MEDS ORDERED: Iohexol 240 (50 ml) ONE (13:11)
[2018-05-27 13:26] LABS: EOS % 0.1 % (1.5-5.0); GRAN # 4.76 (1.4-6.5); GRAN % 18.7 % (50.0-68.0); HEMOGLOBIN 11.6 g/dL (12.0-16.0); LYMPH # 1.3 (1.2-3.4); LYMPH % 8.8 % (22.0-35.0); MEAN CELL VOLUME 89.2 fl (80.0-105.0); MEAN CORPUSCULAR HEMOGLOBIN 29.8 pg (25.0-35.0); MEAN CORPUSCULAR HGB CONC 33.4 g/dl (31.0-37.0); MEAN PLATELET VOLUME 70.3 fl (7.0-11.0); MONO # 0.6 (0.1-0.6); MONO % 2.1 % (1.0-6.0); RBC 3.89 10^6/uL (3.5-6.1); RED CELL DISTRIBUTION WIDTH 13.9 % (11.5-14.5); WHITE BLOOD COUNT 6.8 10^3/ul (4.5-11.0)
[2018-05-27 13:27] LABS: BASO # 0.01 K/mm3 (0.0-2.0); EOS # 0.1 (0.0-0.7)
[2018-05-27 13:59] LABS: INR 1.02; PARTIAL THROMBOPLASTIN TIME 28.2 Seconds (25.1-36.5); PROTHROMBIN TIME 11.6 SECONDS (9.4-12.5)
[2018-05-27 14:17] LABS: ALB/GLOB RATIO 1.2 (1.1-1.8); ALBUMIN 3.5 g/dL (3.0-4.8); ALT/SGPT 16 U/L (7-56); AST/SGOT 22 U/L (14-36); BLOOD UREA NITROGEN 11 mg/dL (7-21); CALCIUM 8.7 mg/dL (8.4-10.5); GFR NON-AFRICAN AMERICAN > 60; LIPASE 37 U/L (23-300)
[2018-05-27 14:47] LABS: URINE APPEARANCE CLEAR (CLEAR); URINE BILIRUBIN NEGATIVE (NEGATIVE); URINE BLOOD NEGATIVE (NEGATIVE); URINE COLOR YELLOW (YELLOW); URINE GLUCOSE (UA) NEGATIVE (NEGATIVE); URINE LEUKOCYTE ESTERASE SMALL Leu/uL (NEGATIVE); URINE PROTEIN NEGATIVE mg/dL (<30 mg/dL); URINE UROBILINOGEN 0.2 E.U./dL (<1 E.U./dL)
[2018-05-27 14:59] LABS: URINE RBC 0 - 2 /hpf (0-2)
[2018-05-27 15:55] VITALS: RESP 19; TEMP 98
[2018-05-27] MEDS ORDERED: Iohexol 350 MG/100 ML VIAL ONE (15:57)
--- NOTE | 2018-05-27 17:01 | CT ---
Date of service: 05/27/2018 PROCEDURE: CT Abdomen and Pelvis with contrast HISTORY: abd pain r/o obstruction; Right abd pain. There is a history of partial colectomy and appendectomy. COMPARISON: None. TECHNIQUE: Contrast dose: 100 cc of Omni 350 Radiation dose: Total exam DLP = 282 mGy-cm. This CT exam was performed using one or more of the following dose reduction techniques: Automated exposure control, adjustment of the mA and/or kV according to patient size, and/or use of iterative reconstruction technique. FINDINGS: LOWER THORAX: Unremarkable. LIVER: Unremarkable. No gross lesion or ductal dilatation. GALLBLADDER AND BILE DUCTS: Unremarkable. PANCREAS: Unremarkable. No gross lesion or ductal dilatation. SPLEEN: Unremarkable. ADRENALS: Unremarkable. No mass. KIDNEYS AND URETERS: Unremarkable. No hydronephrosis. No solid mass. VASCULATURE: Unremarkable. No aortic aneurysm. BOWEL: There is mural thickening in the cecum with surrounding inflammatory changes. There is also some mural thickening in the terminal ileum. Findings are most consistent with colitis or inflammatory bowel disease. There is no evidence of abscess. Findings were discussed with Dr. Monique at 5 p.m. APPENDIX: Removed PERITONEUM: Unremarkable. No free fluid. No free air. LYMPH NODES: Unremarkable. No enlarged lymph nodes. BLADDER: Unremarkable. REPRODUCTIVE: Unremarkable. BONES: No acute fracture. OTHER FINDINGS: None. IMPRESSION: There is mural thickening in the cecum with surrounding inflammatory changes. There is also some mural thickening in the terminal ileum. Findings are most consistent with colitis or inflammatory bowel disease. There is no evidence of abscess.
[2018-05-27 18:19] VITALS: BP 119/53; PULSE 86; O2SAT 100
--- NOTE | 2018-05-27 18:35 | CP.PCM.CON ---
History of Present Illness - History of Present Illness History of Present Illness: Surgery: Dr. Blanco CC: RLQ abdominal pains, acute HPI: Patient is a 78 y/o female w/ significant pmhx of colon CA s/p laparoscopic right hemicolectomy w/ ileocolic anastomosis about 1 month ago presents complaining of acute, intermittent sharp right sided abdominal pain that started about 24hrs ago. She states she was standing in shower when the pains started suddenly. She did not attempt to take medication for the pain but when it did not subside the daughter prompted to bring her into the ER. She denies n/v/f/c. She has been tolerating diet w/o difficulty. Last bowel movement was yesterday morning and was reported as normal. She is passing flatus. In ed, patient was given toradol which significantly improved the pain although still present. Patient under CT scan which showed inflammation at anastomotic site but contrast throughout remainder of colon, no evidence of obstruction. PMH: htn, colon cancer T1N0, glaucoma, arthritis PSH: glaucoma, lap right hemicolectomy ALL: NKDA Review of Systems - Review of Systems Systems not reviewed;Unavailable: Language Barrier - Constitutional Constitutional: absent: Anorexia, Chills, Fever, Weight Loss - EENT Eyes: absent: Blind Spots, Blurred Vision - Cardiovascular Cardiovascular: absent: Chest Pain, Diaphoresis - Respiratory Respiratory: absent: Cough, Wheezing - Gastrointestinal Gastrointestinal: Abdominal Pain. absent: Bloating, Constipation, Diarrhea, Early Satiety, Hematemesis, Hematochezia, Loose Stools, Nausea, Vomiting - Genitourinary Genitourinary: absent: Hematuria, Pyuria - Musculoskeletal Musculoskeletal: absent: Myalgias, Tingling - Integumentary Integumentary: absent: Skin Ulcer, Sores - Neurological Neurological: absent: Headaches, Memory Loss - Psychiatric Psychiatric: absent: Confusion, Depression - Endocrine Endocrine: absent: Polydipsia, Polyphagia - Hematologic/Lymphatic Hematologic: absent: Easy Bleeding, Easy Bruising Past Patient History - Infectious Disease Hx of Infectious Diseases: None - Past Medical History & Family History Past Medical History?: Yes - Past Social History Smoking Status: Never Smoked - CARDIAC Hx Hypertension: Yes - PULMONARY Hx Respiratory Disorders: No - NEUROLOGICAL Hx Neurological Disorder: No - HEENT Hx HEENT Problems: No - RENAL Hx Chronic Kidney Disease: No - ENDOCRINE/METABOLIC Hx Endocrine Disorders: No - HEMATOLOGICAL/ONCOLOGICAL Hx Blood Disorders: No Hx Cancer: Yes (Colon) - INTEGUMENTARY Hx Dermatological Problems: No - MUSCULOSKELETAL/RHEUMATOLOGICAL Hx Musculoskeletal Disorders: No - GASTROINTESTINAL Hx Gastrointestinal Disorders: No Hx Bowel Surgery: No - GENITOURINARY/GYNECOLOGICAL Hx Genitourinary Disorders: No - PSYCHIATRIC Hx Psychophysiologic Disorder: No Hx Substance Use: No - SURGICAL HISTORY Other/Comment: abd surgery 05/30/18 removed cancerous tissue by Dr Shah - ANESTHESIA Hx Anesthesia: Yes Hx Anesthesia Reactions: No Hx Malignant Hyperthermia: No Meds Home Medications: Home Medication List Medication Instructions Recorded Confirmed Type Acetaminophen [Tylenol Extra 500 mg PO Q4 #30 tablet 05/27/18 Rx Strength] Allergies/Adverse Reactions: Allergies Allergy/AdvReac Type Severity Reaction Status Date / Time No Known Allergies Allergy Verified 04/29/18 21:32 Physical Exam - Constitutional Appears: Non-toxic, No Acute Distress - Head Exam Head Exam: ATRAUMATIC, NORMOCEPHALIC - Eye Exam Eye Exam: EOMI, Normal appearance - ENT Exam ENT Exam: Mucous Membranes Moist - Respiratory Exam Respiratory Exam: NORMAL BREATHING PATTERN. absent: Respiratory Distress - Cardiovascular Exam Cardiovascular Exam: REGULAR RHYTHM. absent: Tachycardia - GI/Abdominal Exam GI & Abdominal Exam: Soft, Tenderness (right middle quadrant ). absent: Distended, Guarding, Rebound, Rigid Additional comments: midline surgical incision CDI, healing well, no evidence of redness or drainage remaining lap incisions CDI, well healing - Rectal Exam Rectal Exam: Deferred - Extremities Exam Extremities exam: Positive for: normal inspection. Negative for: calf tenderness - Neurological Exam Neurological exam: Alert - Psychiatric Exam Psychiatric exam: Normal Affect, Normal Mood - Skin Skin Exam: Dry, Normal Color, Warm Results - Vital Signs Recent Vital Signs: Last Vital Signs Temp 98 F 05/27/18 18:17 Pulse 86 05/27/18 18:17 Resp 19 05/27/18 18:17 BP 119/53 L 05/27/18 18:17 Pulse Ox 100 05/27/18 18:17 - Labs Result Diagrams: 05/27/18 13:14 05/27/18 14:00 Labs: Laboratory Results - last 24 hr 05/27/18 05/27/18 05/27/18 13:14 13:14 14:00 WBC 6.8 RBC 3.89 Hgb 11.6 L Hct 34.7 L MCV 89.2 MCH 29.8 MCHC 33.4 RDW 13.9 Plt Count 224 MPV 70.3 H Gran % 18.7 L Lymph % (Auto) 8.8 L [place] % (Auto) 2.1 Eos % (Auto) 0.1 L Baso % (Auto) 0.0 Gran # 4.76 Lymph # (Auto) 1.3 [place] # (Auto) 0.6 Eos # (Auto) 0.1 Baso # (Auto) 0.01 PT 11.6 INR 1.02 APTT 28.2 Sodium 138 Potassium 3.6 Chloride 107 Carbon Dioxide 24 Anion Gap 10 BUN 11 Creatinine 0.8 Est GFR ( Amer) > 60 Est GFR (Non-Af Amer) > 60 Random Glucose 94 Calcium 8.7 Magnesium 1.9 Total Bilirubin 1.7 H AST 22 ALT 16 Alkaline Phosphatase 83 Total Protein 6.3 Albumin 3.5 Globulin 2.8 Albumin/Globulin Ratio 1.2 Lipase 37 Urine Color Urine Appearance Urine pH Ur Specific [place] Urine Protein Urine Glucose (UA) Urine Ketones Urine Blood Urine Nitrate Urine Bilirubin Urine Urobilinogen Ur Leukocyte Esterase Urine RBC Urine WBC Ur Epithelial Cells 05/27/18 14:30 WBC RBC Hgb Hct MCV MCH MCHC RDW Plt Count MPV Gran % Lymph % (Auto) [place] % (Auto) Eos % (Auto) Baso % (Auto) Gran # Lymph # (Auto) [place] # (Auto) Eos # (Auto) Baso # (Auto) PT INR APTT Sodium Potassium Chloride Carbon Dioxide Anion Gap BUN Creatinine Est GFR ( Amer) Est GFR (Non-Af Amer) Random Glucose Calcium Magnesium Total Bilirubin AST ALT Alkaline Phosphatase Total Protein Albumin Globulin Albumin/Globulin Ratio Lipase Urine Color Yellow Urine Appearance Clear Urine pH 7.0 Ur Specific [place] 1.010 Urine Protein Negative Urine Glucose (UA) Negative Urine Ketones Negative Urine Blood Negative Urine Nitrate Negative Urine Bilirubin Negative Urine Urobilinogen 0.2 Ur Leukocyte Esterase Small H Urine RBC 0 - 2 Urine WBC 2 - 5 Ur Epithelial Cells 1 - 3 Assessment & Plan - Assessment and Plan (Free Text) Assessment: 78 y/o female w/ abdominal pain s/p lap hemicolectomy Plan: -CT findings suggest cecal inflammation however patient s/p lap right hemicolectomy. Minimal inflammation isolated around anastomotic site (transverse colon to ileum) w/o evidence of obstruction, leak, or abscess -patient can be discharged home -tylenol for pain as needed -maintain diet and bowel regimen -most likely CT findings of post operative changes -call office on Monday to schedule second f/u appointment with Dr. Blanco for this week -d/w ER attending Dr. Monique and d/w Dr. Blanco [facility] PGY4 - Date & Time Date: 05/27/18 Time: 18:00
== END 2018-05-27 18:17 | disposition home or self-care (01) ==
LOC: ED 11:44
DX: K52.9 Noninfective gastroenteritis and colitis, unspecified (principal); R10.9 Unspecified abdominal pain; I10 Essential (primary) hypertension; Z85.038 Personal history of other malignant neoplasm of large intestine
CPT/HCPCS: 74177; 80053; 81001; 83690; 83735; 85025; 85610; 85730; 96374; 99284; J1885; J7030; Q9966; Q9967

== ENCOUNTER 2018-06-01 22:10 | Inpatient (IN) | payer MEDICARE, OTHER ==
[2018-06-01 22:11] VITALS: BMI 25.6
[2018-06-01] MEDS ORDERED: Sodium Chloride 0.9% 1,000 ML IV STA (22:51)
--- NOTE | 2018-06-01 23:25 | ED PDOC ---
Arrival/HPI - General Chief Complaint: GI Problem Time Seen by Provider: 06/01/18 22:12 Historian: Patient - History of Present Illness Narrative History of Present Illness (Text): 06/01/18 23:21 78 year old female, whose past medical history includes colon cancer, partial colectomy, and hypertension, presents to the emergency department complaining of nausea and 5 episodes of vomiting. Patient was recently Rx 2 antibiotics which the patient and her family members believe may be the cause of her nausea. Patient was recently seen 5 days ago for abdominal pain and had a CT scan which showed inflammation by the cecum which is the site of anastomosis. Patient was seen by surgical technician and cleared her for outpatient followup. Patient is passing gas and had a bowel movement earlier. Patient denies any fever, chills, chest pain, shortness of breath, abdominal pain, nausea, vomiting, diarrhea, urinary symptoms, back pain, neck pain, headache, dizziness, or any other complaints. PMD: Dr. Kim General Surgery: Dr. Blanco Symptom Onset: Gradual Symptom Course: Unchanged Activities at Onset: Light Context: Home Past Medical History - Provider Review Nursing Documentation Reviewed: Yes - Infectious Disease Hx of Infectious Diseases: None - Cardiac Hx Hypertension: Yes - Pulmonary Hx Respiratory Disorders: No - Neurological Hx Neurological Disorder: No - HEENT Hx HEENT Disorder: No - Renal Hx Renal Disorder: No - Endocrine/Metabolic Hx Endocrine Disorders: No - Hematological/Oncological Hx Blood Disorders: No Hx Cancer: Yes (Colon) - Integumentary Hx Dermatological Disorder: No - Musculoskeletal/Rheumatological Hx Musculoskeletal Disorders: No - Gastrointestinal Hx Gastrointestinal Disorders: No Hx Bowel Surgery: No - Genitourinary/Gynecological Hx Genitourinary Disorders: No - Psychiatric Hx Psychophysiologic Disorder: No Hx Substance Use: No - Surgical History Other/Comment: abd surgery 05/30/18 removed cancerous tissue by Dr Shah - Anesthesia Hx Anesthesia: Yes Hx Anesthesia Reactions: No Hx Malignant Hyperthermia: No Family/Social History - Physician Review Nursing Documentation Reviewed: Yes Family/Social History: No Known Family HX Smoking Status: Never Smoked Hx Alcohol Use: No Hx Substance Use: No Allergies/Home Meds Allergies/Adverse Reactions: Allergies No Known Allergies Allergy (Verified 04/29/18 21:32) Home Medications: Home Meds Medication Instructions Recorded Confirmed Donepezil HCl [Aricept] 5 mg PO HS 04/13/18 06/01/18 Losartan [Cozaar] 50 mg PO DAILY 04/13/18 06/01/18 Meloxicam [Mobic] 15 mg PO DAILY 04/13/18 06/01/18 Timolol [Betimol] 1 drop EACHEYE QAM 04/13/18 06/01/18 Cephalexin [cephalexin] 500 mg PO TID 06/01/18 06/01/18 metroNIDAZOLE [Flagyl] 500 mg PO TID 06/01/18 06/01/18 Review of Systems - Physician Review All systems were reviewed & negative as marked: Yes - Review of Systems Constitutional: absent: Fevers, Other (Chills) Respiratory: absent: SOB Cardiovascular: absent: Chest Pain Gastrointestinal: Nausea, Vomiting. absent: Abdominal Pain, Diarrhea Genitourinary Female: absent: Dysuria, Frequency, Hematuria Musculoskeletal: absent: Back Pain, Neck Pain Neurological: absent: Headache, Dizziness Physical Exam Vital Signs Reviewed: Yes Vital Signs Temp Pulse Resp BP Pulse Ox 06/01/18 22:36 98.1 F 97 H 17 175/97 H 98 Temperature: Afebrile Blood Pressure: Hypertensive Pulse: Tachycardic Respiratory Rate: Normal Appearance: Positive for: Well-Appearing, Non-Toxic, Comfortable Pain Distress: Mild Mental Status: Positive for: Alert and Oriented X 3 - Systems Exam Head: Present: Atraumatic, Normocephalic Pupils: Present: PERRL Extroacular Muscles: Present: EOMI Conjunctiva: Present: Normal Mouth: Present: Dry Neck: Present: Normal Range of Motion Respiratory/Chest: Present: Clear to Auscultation, Good Air Exchange. No: Respiratory Distress, Accessory Muscle Use Cardiovascular: Present: Regular Rate and Rhythm, Normal S1, S2. No: Murmurs Abdomen: No: Tenderness, Distention, Peritoneal Signs Back: Present: Normal Inspection Upper Extremity: Present: Normal Inspection. No: Cyanosis, Edema Lower Extremity: Present: Normal Inspection. No: Edema Neurological: Present: GCS=15, CN II-XII Intact, Speech Normal Skin: Present: Warm, Dry, Normal Color. No: Rashes Psychiatric: Present: Alert, Oriented x 3, Normal Insight, Normal Concentration Medical Decision Making ED Course and Treatment: 06/01/18 23:29 Impression: 78 year old female presents complaining of nausea and 5 episodes vomiting. Plan: -- Labs -- Pepcid, Zofran, IV Fluids -- Urine Culture -- Urinalysis -- Reassess and disposition Prior Visits: Notes and results from previous visits were reviewed. Patient was last seen in the emergency department on 05/27/18 presents complaining of right sided abdominal pain for the past 1 day. Patient was discharged. Progress Notes: Labs reviewed : wbc 8.7, ast 162 On re-evaluation, patient feels much improved without nausea or vomiting, reports no abdominal pain, she is able to tolerate small amounts of water without nausea. On exam, abdomen is soft with mild diffuse abdominal tenderness, no guarding, no rebound. Case d/w Dr. Ilana Almodovar, surgical technician, who will evaluate the patient. Patient seen and evaluated by surgical technician and plan will be for observation to switch the patient's antibiotic, which may be the likely cause of her symptoms. 06/02/18 01:48 Case d/w medical payment poster and Dr. Shen, agree with plan for observation and request that medicine be consulted. - Lab Interpretations I have reviewed the lab results: Yes - Medication Orders Current Medication Orders: Sodium Chloride (Sodium Chloride 0.9%) 1,000 mls @ 500 mls/hr IV .Q2H STA Stop: 06/02/18 00:50 Discontinued Medications Famotidine (Pepcid) 20 mg IVP STAT STA Stop: 06/01/18 22:52 Ondansetron HCl (Zofran Inj) 4 mg IVP STAT STA Stop: 06/01/18 22:52 - PA / TRADING SPECIALIST / Resident Statement MD/ has reviewed & agrees with the documentation as recorded. - Scribe Statement The provider has reviewed the documentation as recorded by the Emanuel Garcia Provider Scribe Attestation: All medical record entries made by the Emanuel were at my direction and personally dictated by me. I have reviewed the chart and agree that the record accurately reflects my personal performance of the history, physical exam, medical decision making, and the department course for this patient. I have also personally directed, reviewed, and agree with the discharge instructions and disposition. Disposition/Present on Arrival - Present on Arrival Any Indicators Present on Arrival: No History of DVT/PE: No History of Uncontrolled Diabetes: No Urinary Catheter: No History of Decub. Ulcer: No History Surgical Site Infection Following: None - Disposition Have Diagnosis and Disposition been Completed?: Yes Diagnosis: Nausea & vomiting Disposition: HOSPITALIZED Disposition Time: 01:50 Patient Plan: Observation Patient Problems: Current Active Problems Problem Status Onset Nausea & vomiting Acute Condition: STABLE Referrals: Becki Mtz MD [Primary Care Provider] - Follow up with primary Forms: [employer] (Hebrew)
[2018-06-01 23:52] LABS: BASO # 0.02 K/mm3 (0.0-2.0); BASO % 0.2 % (0.0-3.0); EOS % 0.5 % (1.5-5.0); GRAN # 6.95 (1.4-6.5); GRAN % 86.1 % (50.0-68.0); HEMOGLOBIN 13.2 g/dL (12.0-16.0); LYMPH # 0.8 (1.2-3.4); LYMPH % 10.1 % (22.0-35.0); MEAN CELL VOLUME 89.1 fl (80.0-105.0); MEAN CORPUSCULAR HEMOGLOBIN 29.9 pg (25.0-35.0); MEAN CORPUSCULAR HGB CONC 33.6 g/dl (31.0-37.0); MEAN PLATELET VOLUME 10.3 fl (7.0-11.0); MONO # 0.3 (0.1-0.6); MONO % 3.1 % (1.0-6.0); RBC 4.41 10^6/uL (3.5-6.1); RED CELL DISTRIBUTION WIDTH 13.7 % (11.5-14.5); WHITE BLOOD COUNT 8.1 10^3/ul (4.5-11.0)
[2018-06-02 00:01] LABS: INR 0.99; PARTIAL THROMBOPLASTIN TIME 27.5 Seconds (25.1-36.5); PROTHROMBIN TIME 11.3 SECONDS (9.4-12.5)
[2018-06-02 00:20] LABS: ALB/GLOB RATIO 1.3 (1.1-1.8); ALT/SGPT 53 U/L (7-56); AST/SGOT 162 U/L (14-36); BLOOD UREA NITROGEN 14 mg/dL (7-21); CALCIUM 9.5 mg/dL (8.4-10.5); GFR NON-AFRICAN AMERICAN > 60; LIPASE 27 U/L (23-300)
[2018-06-02 00:30] LABS: URINE BILIRUBIN NEGATIVE (NEGATIVE); URINE BLOOD NEGATIVE (NEGATIVE); URINE GLUCOSE (UA) NEGATIVE (NEGATIVE); URINE LEUKOCYTE ESTERASE TRACE Leu/uL (NEGATIVE); URINE PROTEIN NEGATIVE mg/dL (<30 mg/dL); URINE UROBILINOGEN 0.2 E.U./dL (<1 E.U./dL)
[2018-06-02 00:39] LABS: URINE APPEARANCE CLEAR (CLEAR); URINE COLOR YELLOW (YELLOW)
--- NOTE | 2018-06-02 01:36 | CP.PCM.CON ---
History of Present Illness - History of Present Illness History of Present Illness: Cosnult note for Dr. Blanco consulted for nausea, vomiting abdominal cramping 78 yr old female w/ pmh HTN s/p Laparoscopic Right hemicolectomy with Dr. Blanco on 04/30 who presents with 2 days of nausea abdominal cramping and vomiting after taking the antibiotics which she was recently prescribed (Rocephin and flagyl). Patient's family is present to translate. She states that she has been taking the antibiotics since Monday and that her symptoms have been of the same duration. She c/o mild diffuse intermittent crampy pain in the mid morning after taking the antibiotics and n/v following this crampy pain. She endorses having normal BM and passing flatus during this time with no bloody or tarry stools and no diarrhea. She denies fevers, chills, ORTEGA, CP, SOB, constipation, diarrhea and bloating. PMH: HTN PSH: Apppendectomy, Right Hemicolectomy 04/30/18 All: possibly Flagyl Social: denies Review of Systems - Review of Systems All systems: reviewed and no additional remarkable complaints except (as per HPI) Past Patient History - Infectious Disease Hx of Infectious Diseases: None - Past Medical History & Family History Past Medical History?: Yes - Past Social History Smoking Status: Never Smoked - CARDIAC Hx Hypertension: Yes - PULMONARY Hx Respiratory Disorders: No - NEUROLOGICAL Hx Neurological Disorder: No - HEENT Hx HEENT Problems: No - RENAL Hx Chronic Kidney Disease: No - ENDOCRINE/METABOLIC Hx Endocrine Disorders: No - HEMATOLOGICAL/ONCOLOGICAL Hx Blood Disorders: No Hx Cancer: Yes (Colon) - INTEGUMENTARY Hx Dermatological Problems: No - MUSCULOSKELETAL/RHEUMATOLOGICAL Hx Musculoskeletal Disorders: No - GASTROINTESTINAL Hx Gastrointestinal Disorders: No Hx Bowel Surgery: No - GENITOURINARY/GYNECOLOGICAL Hx Genitourinary Disorders: No - PSYCHIATRIC Hx Psychophysiologic Disorder: No Hx Substance Use: No - SURGICAL HISTORY Other/Comment: abd surgery 05/30/18 removed cancerous tissue by Dr Shah - ANESTHESIA Hx Anesthesia: Yes Hx Anesthesia Reactions: No Hx Malignant Hyperthermia: No Meds Allergies/Adverse Reactions: Allergies Allergy/AdvReac Type Severity Reaction Status Date / Time No Known Allergies Allergy Verified 04/29/18 21:32 Physical Exam - Constitutional Appears: Well, Non-toxic, No Acute Distress - Head Exam Head Exam: ATRAUMATIC, NORMOCEPHALIC - Eye Exam Eye Exam: EOMI Pupil Exam: PERRL - ENT Exam ENT Exam: Mucous Membranes Dry - Respiratory Exam Respiratory Exam: NORMAL BREATHING PATTERN - Cardiovascular Exam Cardiovascular Exam: REGULAR RHYTHM - GI/Abdominal Exam GI & Abdominal Exam: Soft, Tenderness (mild). absent: Distended, Guarding, Rebound - Extremities Exam Extremities exam: Positive for: pedal pulses present. Negative for: calf tenderness, pedal edema, tenderness - Neurological Exam Neurological exam: Alert, Oriented x3 - Psychiatric Exam Psychiatric exam: Normal Affect, Normal Mood - Skin Skin Exam: Dry, Intact, Normal Color, Warm Results - Vital Signs Recent Vital Signs: Last Vital Signs Temp 98.1 F 06/02/18 00:11 Pulse 63 06/02/18 00:11 Resp 18 06/02/18 00:11 BP 142/73 06/02/18 00:11 Pulse Ox 96 06/02/18 00:11 - Labs Result Diagrams: 06/01/18 23:37 06/01/18 23:37 Labs: Laboratory Results - last 24 hr 06/01/18 06/01/18 06/01/18 23:37 23:37 23:37 WBC 8.1 RBC 4.41 Hgb 13.2 Hct 39.3 MCV 89.1 MCH 29.9 MCHC 33.6 RDW 13.7 Plt Count 297 MPV 10.3 Gran % 86.1 H Lymph % (Auto) 10.1 L [place] % (Auto) 3.1 Eos % (Auto) 0.5 L Baso % (Auto) 0.2 Gran # 6.95 H Lymph # (Auto) 0.8 L [place] # (Auto) 0.3 Eos # (Auto) 0.0 Baso # (Auto) 0.02 PT 11.3 INR 0.99 APTT 27.5 Sodium 138 Potassium 4.0 Chloride 103 Carbon Dioxide 21 Anion Gap 17 BUN 14 Creatinine 0.7 Est GFR ( Amer) > 60 Est GFR (Non-Af Amer) > 60 Random Glucose 192 H Calcium 9.5 Magnesium 1.9 Total Bilirubin 0.9 AST 162 H D ALT 53 Alkaline Phosphatase 115 Total Protein 7.1 Albumin 4.0 Globulin 3.1 Albumin/Globulin Ratio 1.3 Lipase 27 Urine Color Urine Appearance Urine pH Ur Specific [place] Urine Protein Urine Glucose (UA) Urine Ketones Urine Blood Urine Nitrate Urine Bilirubin Urine Urobilinogen Ur Leukocyte Esterase 06/02/18 00:00 WBC RBC Hgb Hct MCV MCH MCHC RDW Plt Count MPV Gran % Lymph % (Auto) [place] % (Auto) Eos % (Auto) Baso % (Auto) Gran # Lymph # (Auto) [place] # (Auto) Eos # (Auto) Baso # (Auto) PT INR APTT Sodium Potassium Chloride Carbon Dioxide Anion Gap BUN Creatinine Est GFR ( Amer) Est GFR (Non-Af Amer) Random Glucose Calcium Magnesium Total Bilirubin AST ALT Alkaline Phosphatase Total Protein Albumin Globulin Albumin/Globulin Ratio Lipase Urine Color Yellow Urine Appearance Clear Urine pH 6.0 Ur Specific [place] 1.025 Urine Protein Negative Urine Glucose (UA) Negative Urine Ketones >=80 Urine Blood Negative Urine Nitrate Negative Urine Bilirubin Negative Urine Urobilinogen 0.2 Ur Leukocyte Esterase Trace H Assessment & Plan - Assessment and Plan (Free Text) Assessment: 78 yr old female with likely antibiotic adverse reaction Plan: Abdominal pain: * stop flagyl * continue rocephin * start zosyn * IVF * NPO Ilana Almodovar, PGY 1 - Date & Time Date: 06/02/18 Time: 01:30
[2018-06-02 01:41] LABS: URINE BACTERIA MOD (NEG); URINE EPITHELIAL CELLS 0 - 2 /hpf (0-5)
[2018-06-02] MEDS ORDERED: Piperacillin/Tazobact 3.375 gm 100 ML IVPB STA (01:52)
[2018-06-02] MEDS ORDERED: Sodium Chloride 0.9% 1,000 ML IV STA (01:58)
[2018-06-02] MEDS ORDERED: Sodium Chloride 0.9% 1,000 ML IV SCH (02:00)
--- NOTE | 2018-06-02 02:07 | CP.PCM.HP ---
History of Present Illness - History of Present Illness History of Present Illness: History and Physical for Dr. Blanco CC: nausea, vomiting, abdominal pain 78 yr old female w/ pmh HTN s/p Laparoscopic Right hemicolectomy with Dr. Blanco on 04/30 who presents with 2 days of nausea abdominal cramping and vomiting after taking the antibiotics which she was recently prescribed (Rocephin and flagyl). Patient's family is present to translate. She states that she has been taking the antibiotics since Monday and that her symptoms have been of the same duration. She c/o mild diffuse intermittent crampy pain in the mid morning after taking the antibiotics and n/v following this crampy pain. She endorses having normal BM and passing flatus during this time with no bloody or tarry stools and no diarrhea. She denies fevers, chills, ORTEGA, CP, SOB, constipation, diarrhea and bloating. PMH: HTN PSH: Apppendectomy, Right Hemicolectomy 04/30/18 All: possibly Flagyl Social: denies Present on Admission - Present on Admission Any Indicators Present on Admission: No Review of Systems - Review of Systems All systems: reviewed and no additional remarkable complaints except (as per HPI) Past Patient History - Infectious Disease Hx of Infectious Diseases: None - Past Medical History & Family History Past Medical History?: Yes - Past Social History Smoking Status: Never Smoked - CARDIAC Hx Hypertension: Yes - PULMONARY Hx Respiratory Disorders: No - NEUROLOGICAL Hx Neurological Disorder: No - HEENT Hx HEENT Problems: No - RENAL Hx Chronic Kidney Disease: No - ENDOCRINE/METABOLIC Hx Endocrine Disorders: No - HEMATOLOGICAL/ONCOLOGICAL Hx Blood Disorders: No Hx Cancer: Yes (Colon) - INTEGUMENTARY Hx Dermatological Problems: No - MUSCULOSKELETAL/RHEUMATOLOGICAL Hx Musculoskeletal Disorders: No - GASTROINTESTINAL Hx Gastrointestinal Disorders: No Hx Bowel Surgery: No - GENITOURINARY/GYNECOLOGICAL Hx Genitourinary Disorders: No - PSYCHIATRIC Hx Psychophysiologic Disorder: No Hx Substance Use: No - SURGICAL HISTORY Other/Comment: abd surgery 05/30/18 removed cancerous tissue by Dr Shah - ANESTHESIA Hx Anesthesia: Yes Hx Anesthesia Reactions: No Hx Malignant Hyperthermia: No Meds Allergies/Adverse Reactions: Allergies Allergy/AdvReac Type Severity Reaction Status Date / Time No Known Allergies Allergy Verified 04/29/18 21:32 Physical Exam - Constitutional Appears: Well, Non-toxic, No Acute Distress - Head Exam Head Exam: ATRAUMATIC, NORMOCEPHALIC - Eye Exam Eye Exam: EOMI, PERRL Pupil Exam: PERRL - ENT Exam ENT Exam: Mucous Membranes Moist - Respiratory Exam Respiratory Exam: NORMAL BREATHING PATTERN - Cardiovascular Exam Cardiovascular Exam: REGULAR RHYTHM - GI/Abdominal Exam GI & Abdominal Exam: Soft, Tenderness (mild RLQ tenderness, no guarding). absen t: Distended, Firm, Guarding, Rebound, Rigid - Extremities Exam Extremities exam: Positive for: pedal pulses present. Negative for: calf tenderness, pedal edema, tenderness - Back Exam Back exam: absent: CVA tenderness (L), CVA tenderness (R) - Neurological Exam Neurological exam: Alert, Oriented x3 - Psychiatric Exam Psychiatric exam: Normal Affect, Normal Mood - Skin Skin Exam: Dry, Intact, Normal Color, Warm Results - Vital Signs Recent Vital Signs: Last Vital Signs Temp 98.1 F 06/02/18 00:11 Pulse 63 06/02/18 00:11 Resp 18 06/02/18 00:11 BP 142/73 06/02/18 00:11 Pulse Ox 96 06/02/18 00:11 - Labs Result Diagrams: 06/01/18 23:37 06/01/18 23:37 Labs: Laboratory Results - last 24 hr 06/01/18 06/01/18 06/01/18 23:37 23:37 23:37 WBC 8.1 RBC 4.41 Hgb 13.2 Hct 39.3 MCV 89.1 MCH 29.9 MCHC 33.6 RDW 13.7 Plt Count 297 MPV 10.3 Gran % 86.1 H Lymph % (Auto) 10.1 L [place] % (Auto) 3.1 Eos % (Auto) 0.5 L Baso % (Auto) 0.2 Gran # 6.95 H Lymph # (Auto) 0.8 L [place] # (Auto) 0.3 Eos # (Auto) 0.0 Baso # (Auto) 0.02 PT 11.3 INR 0.99 APTT 27.5 Sodium 138 Potassium 4.0 Chloride 103 Carbon Dioxide 21 Anion Gap 17 BUN 14 Creatinine 0.7 Est GFR ( Amer) > 60 Est GFR (Non-Af Amer) > 60 Random Glucose 192 H Calcium 9.5 Magnesium 1.9 Total Bilirubin 0.9 AST 162 H D ALT 53 Alkaline Phosphatase 115 Total Protein 7.1 Albumin 4.0 Globulin 3.1 Albumin/Globulin Ratio 1.3 Lipase 27 Urine Color Urine Appearance Urine pH Ur Specific [place] Urine Protein Urine Glucose (UA) Urine Ketones Urine Blood Urine Nitrate Urine Bilirubin Urine Urobilinogen Ur Leukocyte Esterase Urine RBC Urine WBC Ur Epithelial Cells Urine Bacteria 06/02/18 00:00 WBC RBC Hgb Hct MCV MCH MCHC RDW Plt Count MPV Gran % Lymph % (Auto) [place] % (Auto) Eos % (Auto) Baso % (Auto) Gran # Lymph # (Auto) [place] # (Auto) Eos # (Auto) Baso # (Auto) PT INR APTT Sodium Potassium Chloride Carbon Dioxide Anion Gap BUN Creatinine Est GFR ( Amer) Est GFR (Non-Af Amer) Random Glucose Calcium Magnesium Total Bilirubin AST ALT Alkaline Phosphatase Total Protein Albumin Globulin Albumin/Globulin Ratio Lipase Urine Color Yellow Urine Appearance Clear Urine pH 6.0 Ur Specific [place] 1.025 Urine Protein Negative Urine Glucose (UA) Negative Urine Ketones >=80 Urine Blood Negative Urine Nitrate Negative Urine Bilirubin Negative Urine Urobilinogen 0.2 Ur Leukocyte Esterase Trace H Urine RBC 1 - 3 Urine WBC 2 - 5 Ur Epithelial Cells 0 - 2 Urine Bacteria Mod Assessment & Plan - Assessment and Plan (Free Text) Assessment: 78 yr old female with likely antibiotic adverse reaction Plan: Abdominal pain, nausea vomiting: zofran PRN stop flagyl continue rocephin start zosyn IVF NPO HTN: restart home quentin Almodovar, PGY 1 - Date & Time Date: 06/02/18 Time: 01:15
--- NOTE | 2018-06-02 17:05 | CP.PCM.CON ---
History of Present Illness - History of Present Illness History of Present Illness: PGY-[address] Santana Mrs Kilpatrick is a 78 year old female with a PMHx of HTN and colon cancer s/p laparoscopic hemicolectomy on 04/30 who presented for nausea, vomiting and abdominal pain. She stated she was prescribed abx (rocephin and flagyl?) for abdominal pain and diarrhea 5 days ago (she came to the ER) and that shortly after she began having nausea and vomiting. This has occurred to her before - her hemicolectomy was delayed bc she developed nausea and vomiting after taking erythromycin for bowel prep. Today she stated her only complaint is only nausea. She had a bowel movement, normal appearing, 1 day prior and that her abdominal pain is now gone. Did not offer any other complaints. PMHx: htn, colon cancer T1No, glaucoma, arthritis PSHx: glaucoma, lap right hemicolectomy ALL: NKDA Review of Systems - Constitutional Constitutional: absent: Chills, Fever - EENT Eyes: absent: Change in Vision - Cardiovascular Cardiovascular: absent: Chest Pain - Respiratory Respiratory: absent: Cough, Dyspnea - Gastrointestinal Gastrointestinal: absent: Abdominal Pain, Bloating, Diarrhea - Genitourinary Genitourinary: absent: Dysuria - Integumentary Integumentary: absent: Bleeding Lesions - Hematologic/Lymphatic Hematologic: absent: Easy Bleeding Past Patient History - Infectious Disease Hx of Infectious Diseases: None - Past Medical History & Family History Past Medical History?: Yes - Past Social History Smoking Status: Never Smoked - CARDIAC Hx Hypertension: Yes - PULMONARY Hx Respiratory Disorders: No - NEUROLOGICAL Hx Neurological Disorder: No - HEENT Hx HEENT Problems: No - RENAL Hx Chronic Kidney Disease: No - ENDOCRINE/METABOLIC Hx Endocrine Disorders: No - HEMATOLOGICAL/ONCOLOGICAL Hx Blood Disorders: No Hx Cancer: Yes (Colon) - INTEGUMENTARY Hx Dermatological Problems: No - MUSCULOSKELETAL/RHEUMATOLOGICAL Hx Musculoskeletal Disorders: No - GASTROINTESTINAL Hx Gastrointestinal Disorders: No Hx Bowel Surgery: No - GENITOURINARY/GYNECOLOGICAL Hx Genitourinary Disorders: No - PSYCHIATRIC Hx Psychophysiologic Disorder: No Hx Substance Use: No - SURGICAL HISTORY Other/Comment: abd surgery 05/30/18 removed cancerous tissue by Dr Shah - ANESTHESIA Hx Anesthesia: Yes Hx Anesthesia Reactions: No Hx Malignant Hyperthermia: No Meds Allergies/Adverse Reactions: Allergies Allergy/AdvReac Type Severity Reaction Status Date / Time No Known Allergies Allergy Verified 04/29/18 21:32 - Medications Medications: Current Medications Acetaminophen (Tylenol 650mg/20.3ml Solution Ud) 500 mg PO Q4 [facility] Cephalexin Monohydrate (Keflex) 500 mg PO TID [facility]; Protocol Last Admin: 06/02/18 14:08 Dose: 500 mg Donepezil HCl (Aricept) 5 mg PO HS [facility] Famotidine (Pepcid) 40 mg PO HS [facility] Losartan Potassium (Cozaar) 50 mg PO DAILY [facility] Last Admin: 06/02/18 09:47 Dose: 50 mg Meloxicam (Mobic) 15 mg PO DAILY [facility] Last Admin: 06/02/18 09:47 Dose: 15 mg Non-Formulary Medication (Timolol [Betimol]) 1 drop EACHEYE QAM [facility] Ondansetron HCl (Zofran Inj) 4 mg IVP Q4H PRN PRN Reason: Nausea/Vomiting Last Admin: 06/02/18 13:31 Dose: 4 mg Physical Exam - Additional Findings Additional findings: - Constitutional Appears: Non-toxic, No Acute Distress - Head Exam Head Exam: ATRAUMATIC, NORMOCEPHALIC - Eye Exam Eye Exam: EOMI, Normal appearance - ENT Exam ENT Exam: Mucous Membranes Moist - Respiratory Exam Respiratory Exam: NORMAL BREATHING PATTERN. absent: Respiratory Distress - Cardiovascular Exam Cardiovascular Exam: REGULAR RHYTHM. absent: Tachycardia - GI/Abdominal Exam GI & Abdominal Exam: Soft, Tenderness (right middle quadrant ). absent: Distended, Guarding, Rebound, Rigid Additional comments: midline surgical incision CDI, healing well, no evidence of redness or drainage remaining lap incisions CDI, well healing - Rectal Exam Rectal Exam: Deferred - Extremities Exam Extremities exam: Positive for: normal inspection. Negative for: calf tenderness - Neurological Exam Neurological exam: Alert - Psychiatric Exam Psychiatric exam: Normal Affect, Normal Mood - Skin Skin Exam: Dry, Normal Color, Warm Results - Vital Signs Recent Vital Signs: Last Vital Signs Temp 98.3 F 06/02/18 06:00 Pulse 64 06/02/18 09:47 Resp 20 06/02/18 06:00 BP 163/80 H 06/02/18 09:47 Pulse Ox 95 06/02/18 06:00 - Labs Result Diagrams: 06/01/18 23:37 06/01/18 23:37 Labs: Laboratory Results - last 24 hr 06/01/18 06/01/18 06/01/18 23:37 23:37 23:37 WBC 8.1 RBC 4.41 Hgb 13.2 Hct 39.3 MCV 89.1 MCH 29.9 MCHC 33.6 RDW 13.7 Plt Count 297 MPV 10.3 Gran % 86.1 H Lymph % (Auto) 10.1 L [place] % (Auto) 3.1 Eos % (Auto) 0.5 L Baso % (Auto) 0.2 Gran # 6.95 H Lymph # (Auto) 0.8 L [place] # (Auto) 0.3 Eos # (Auto) 0.0 Baso # (Auto) 0.02 PT 11.3 INR 0.99 APTT 27.5 Sodium 138 Potassium 4.0 Chloride 103 Carbon Dioxide 21 Anion Gap 17 BUN 14 Creatinine 0.7 Est GFR ( Amer) > 60 Est GFR (Non-Af Amer) > 60 Random Glucose 192 H Calcium 9.5 Magnesium 1.9 Total Bilirubin 0.9 AST 162 H D ALT 53 Alkaline Phosphatase 115 Total Protein 7.1 Albumin 4.0 Globulin 3.1 Albumin/Globulin Ratio 1.3 Lipase 27 Urine Color Urine Appearance Urine pH Ur Specific [place] Urine Protein Urine Glucose (UA) Urine Ketones Urine Blood Urine Nitrate Urine Bilirubin Urine Urobilinogen Ur Leukocyte Esterase Urine RBC Urine WBC Ur Epithelial Cells Urine Bacteria 06/02/18 00:00 WBC RBC Hgb Hct MCV MCH MCHC RDW Plt Count MPV Gran % Lymph % (Auto) [place] % (Auto) Eos % (Auto) Baso % (Auto) Gran # Lymph # (Auto) [place] # (Auto) Eos # (Auto) Baso # (Auto) PT INR APTT Sodium Potassium Chloride Carbon Dioxide Anion Gap BUN Creatinine Est GFR ( Amer) Est GFR (Non-Af Amer) Random Glucose Calcium Magnesium Total Bilirubin AST ALT Alkaline Phosphatase Total Protein Albumin Globulin Albumin/Globulin Ratio Lipase Urine Color Yellow Urine Appearance Clear Urine pH 6.0 Ur Specific [place] 1.025 Urine Protein Negative Urine Glucose (UA) Negative Urine Ketones >=80 Urine Blood Negative Urine Nitrate Negative Urine Bilirubin Negative Urine Urobilinogen 0.2 Ur Leukocyte Esterase Trace H Urine RBC 1 - 3 Urine WBC 2 - 5 Ur Epithelial Cells 0 - 2 Urine Bacteria Mod Assessment & Plan - Assessment and Plan (Free Text) Plan: Mrs Kilpatrick is a 78 year old female with a PMHx of HTN and colon cancer s/p laparoscopic hemicolectomy on 04/30 who presented for nausea, vomiting and abdominal pain: Abdominal Pain, Resolved -likely related to constipation which has now resolved - patient had bowel movement 1 day ago which appeared normal however reaction to abx also possible; no need to order cdiff as patient no longer with diarrhea -ct imaging suggest cecal inflammation however patient s/p lap right hemicolectomy - most likely CT findings of post operative changes -meloxicam 15mg po qd -cephalexin 500mg po tid (continue current abx as symptoms are resolving) -ast/alt 162/53 -ct abd/pelvis w/ contrast: * There is mural thickening in the cecum with surrounding inflammatory changes. There is also some mural thickening in the terminal ileum. Findings are most consistent with colitis or inflammatory bowel disease. There is no evidence of abscess. -f/u abdominal ultrasound - if ok then ok to discharge home from medicine standpoint with follow-up within 1 week Nausea/Vomiting -vomiting resolved -patient still nauseous -zofran 4mg ivp q4h prn Elevated LFTs -f/u abdominal ultrasound - if ok then ok to discharge home from medicine standpoint with follow-up within 1 week HTN -losartan 50mg po qd PPX -scd's -pepcid 40mg po hs -lovenox 40mg sc qd Case discussed with Dr Santana
[2018-06-02] MEDS: Acetaminophen 650mg/20.3ml solution UD PO SCH (20:00)
[2018-06-03] MEDS ORDERED: DiphenhydrAMINE 50 mg/ml Inj IVP STA (04:50)
[2018-06-03] MEDS ORDERED: Iohexol 240 (50 ml) ONE (07:24)
--- NOTE | 2018-06-03 07:24 | CP.PCM.PN ---
Subjective - Date & Time of Evaluation Date of Evaluation: 06/03/18 Time of Evaluation: 06:45 - Subjective Subjective: Progress note for Dr. Blanco Patient seen and examined this am at bedside. Patient reports 2 episodes of NBNB emesis and nausea overnight with food. She otherwise denies ORTEGA, f/c, CP, SOB, abdominal pain, extremity pain. Objective - Vital Signs/Intake and Output Vital Signs (last 24 hours): Temp Pulse Resp BP Pulse Ox 99.3 F 56 L 20 102/61 95 06/02/18 18:00 06/02/18 18:00 06/02/18 18:00 06/02/18 18:00 06/02/18 18:00 - Medications Medications: Current Medications Acetaminophen (Tylenol 650mg/20.3ml Solution Ud) 500 mg PO Q4 [facility] Last Admin: 06/03/18 00:00 Dose: Not Given Cephalexin Monohydrate (Keflex) 500 mg PO TID [facility]; Protocol Last Admin: 06/02/18 18:11 Dose: 500 mg Donepezil HCl (Aricept) 5 mg PO HS [facility] Last Admin: 06/02/18 21:26 Dose: 5 mg Enoxaparin Sodium (Lovenox) 40 mg SC DAILY [facility]; Protocol Famotidine (Pepcid) 40 mg PO HS [facility] Last Admin: 06/02/18 21:26 Dose: 40 mg Losartan Potassium (Cozaar) 50 mg PO DAILY [facility] Last Admin: 06/02/18 09:47 Dose: 50 mg Meloxicam (Mobic) 15 mg PO DAILY [facility] Last Admin: 06/02/18 09:47 Dose: 15 mg Non-Formulary Medication (Timolol [Betimol]) 1 drop EACHEYE QAM [facility] Ondansetron HCl (Zofran Inj) 4 mg IVP Q4H PRN PRN Reason: Nausea/Vomiting Last Admin: 06/03/18 02:12 Dose: 4 mg - Labs Labs: 06/01/18 23:37 06/01/18 23:37 PT 11.3 SECONDS (9.4-12.5) 06/01/18 23:37 INR 0.99 06/01/18 23:37 APTT 27.5 Seconds (25.1-36.5) 06/01/18 23:37 - Constitutional Appears: Well, Non-toxic, No Acute Distress - Head Exam Head Exam: ATRAUMATIC, NORMOCEPHALIC - Eye Exam Eye Exam: EOMI - ENT Exam ENT Exam: Mucous Membranes Moist - Respiratory Exam Respiratory Exam: NORMAL BREATHING PATTERN - Cardiovascular Exam Cardiovascular Exam: REGULAR RHYTHM - GI/Abdominal Exam GI & Abdominal Exam: Soft. absent: Distended, Guarding, Rigid, Tenderness, Rebound - Extremities Exam Extremities Exam: absent: Calf Tenderness, Pedal Edema, Tenderness - Neurological Exam Neurological Exam: Alert, Awake, Oriented x3 - Psychiatric Exam Psychiatric exam: Normal Affect, Normal Mood - Skin Skin Exam: Dry, Intact, Normal Color, Warm Assessment and Plan - Assessment and Plan (Free Text) Assessment: 78 yr old female s/p laparoscopic hemicolectomy 1 month ago with n/v Plan: * CT with PO contrast today * continue with HHD as tolerated * continue keflex * continue home medications * further recs per Dr. Francis Almodovar, PGY 1
[2018-06-03] MEDS: Acetaminophen 650mg/20.3ml solution UD PO SCH ×3 (08:26→12:12)
[2018-06-03 08:34] LABS: BASO # 0.02 K/mm3 (0.0-2.0); BASO % 0.2 % (0.0-3.0); EOS # 0.1 (0.0-0.7); EOS % 0.6 % (1.5-5.0); GRAN # 6.59 (1.4-6.5); GRAN % 79.7 % (50.0-68.0); HEMOGLOBIN 12.7 g/dL (12.0-16.0); LYMPH # 1.2 (1.2-3.4); LYMPH % 13.9 % (22.0-35.0); MEAN CELL VOLUME 88.5 fl (80.0-105.0); MEAN CORPUSCULAR HEMOGLOBIN 29.3 pg (25.0-35.0); MEAN CORPUSCULAR HGB CONC 33.2 g/dl (31.0-37.0); MEAN PLATELET VOLUME 10.3 fl (7.0-11.0); MONO # 0.5 (0.1-0.6); MONO % 5.6 % (1.0-6.0); RBC 4.33 10^6/uL (3.5-6.1); RED CELL DISTRIBUTION WIDTH 13.7 % (11.5-14.5); WHITE BLOOD COUNT 8.3 10^3/ul (4.5-11.0)
[2018-06-03 09:02] LABS: ALB/GLOB RATIO 1.2 (1.1-1.8); ALBUMIN 3.5 g/dL (3.0-4.8); ALT/SGPT 45 U/L (7-56); AST/SGOT 97 U/L (14-36); BLOOD UREA NITROGEN 9 mg/dL (7-21); CALCIUM 8.8 mg/dL (8.4-10.5); GFR NON-AFRICAN AMERICAN > 60
[2018-06-03] MEDS ORDERED: Non Formulary Medication (Timolol [Betimol] 1 DROP) EACHEYE SCH (10:00)
[2018-06-03] MEDS ORDERED: Enoxaparin 40 mg Syringe SC SCH (10:00)
[2018-06-03] MEDS ORDERED: Iohexol 350 MG/100 ML VIAL ONE (10:41)
--- NOTE | 2018-06-03 12:02 | CT ---
Date of service: 06/03/2018 PROCEDURE: CT Abdomen and Pelvis with contrast HISTORY: post op nausea and vomiting COMPARISON: 05/27/2018 TECHNIQUE: Contrast dose: 100 mL Omnipaque 350 Radiation dose: Total exam DLP = 364.28 mGy-cm. This CT exam was performed using one or more of the following dose reduction techniques: Automated exposure control, adjustment of the mA and/or kV according to patient size, and/or use of iterative reconstruction technique. FINDINGS: LOWER THORAX: Unremarkable. LIVER: Unremarkable. No gross lesion or ductal dilatation. GALLBLADDER AND BILE DUCTS: Unremarkable. PANCREAS: Unremarkable. No gross lesion or ductal dilatation. SPLEEN: Unremarkable. ADRENALS: Unremarkable. No mass. KIDNEYS AND URETERS: Unremarkable. No hydronephrosis. No solid mass. VASCULATURE: Unremarkable. No aortic aneurysm. BOWEL: The patient is status post partial right hemicolectomy. Ileocolic anastomosis is identified with sutures. This represents interval change since prior examination of 05/27/2018. Multiple dilated distal small bowel loops are identified, filled with fluid. Oral contrast is not seen in the distal small bowel. Findings may reflect postoperative mechanical small-bowel obstruction but more likely represent postoperative ileus. Follow-up is advised, however. Infiltration of the fat surrounding the ileocolic anastomosis consistent with recent surgery. No other abnormal bowel loops are identified. APPENDIX: Status post partial right hemicolectomy PERITONEUM: Mild ascites. No pneumoperitoneum. LYMPH NODES: Unremarkable. No enlarged lymph nodes. BLADDER: Unremarkable. REPRODUCTIVE: Normal uterus BONES: No acute fracture. OTHER FINDINGS: None. IMPRESSION: Status post partial right hemicolectomy. Dilated distal loops of small bowel up to the level of the ileocolic anastomosis most likely representing postoperative ileus. Cannot rule out mechanical obstruction at this time. Follow-up advised. Proximal small bowel is not dilated. Mild ascites. Mild postoperative change about the ileocolic anastomosis. No other significant abnormality.
--- NOTE | 2018-06-03 14:26 | US ---
Date of service: 06/03/2018 HISTORY: elevated LFTs COMPARISON: None. TECHNIQUE: Sonographic evaluation of the abdomen. FINDINGS: LIVER: Measures 14.2 cm. Diffusely increased echogenicity of the liver parenchyma. Consistent with fatty infiltration. Smooth contour. No mass. No biliary dilatation. Normal hepatopetal portal venous flow demonstrated. GALLBLADDER: Unremarkable. No gallstones. COMMON BILE DUCT: Measures 6 mm. No stones. No dilatation. PANCREAS: Unremarkable as visualized. No mass. No ductal dilatation. RIGHT KIDNEY: Measures 9.3cm. Normal echogenicity. No calculus, mass, or hydronephrosis. LEFT KIDNEY: Measures 10.1cm. Normal echogenicity. No calculus, mass, or hydronephrosis. SPLEEN: Normal in size and contour. No mass. AORTA: No aneurysmal dilatation. IVC: Unremarkable. OTHER FINDINGS: None. IMPRESSION: Mild fatty infiltration of the liver. No evidence of cholelithiasis or cholecystitis. No biliary obstruction. Otherwise unremarkable examination.
[2018-06-03] MEDS ORDERED: Acetaminophen 650mg/20.3ml solution UD PO PRN (14:58)
[2018-06-03] MEDS ORDERED: Sodium Chloride 0.9% 1,000 ML IV SCH (15:15)
--- NOTE | 2018-06-03 18:23 | CP.PCM.PN ---
Subjective - Date & Time of Evaluation Date of Evaluation: 06/03/18 Time of Evaluation: 18:20 - Subjective Subjective: Internal Medicine Progress Note (Hospitalist Service): [place] PGY2 Patient seen and assessed at bedside. Patient was noted to have one episode of nausea overnight that was relieved with PRN Zofran. No other events noted. Patient denies any currently complaints at this time including fevers, chills, headache, chest pain, SOB, abdominal pain, N/V/D/C, changes in urine output, or any new skin changes. Objective - Vital Signs/Intake and Output Vital Signs (last 24 hours): Temp Pulse Resp BP Pulse Ox 99.8 F H 64 19 151/83 H 96 06/03/18 06:00 06/03/18 17:21 06/03/18 17:21 06/03/18 17:21 06/03/18 17:21 - Medications Medications: Current Medications Acetaminophen (Tylenol 650mg/20.3ml Solution Ud) 500 mg PO Q4 PRN PRN Reason: Pain, Mild (1-3) Cephalexin Monohydrate (Keflex) 500 mg PO TID [facility]S [facility]; Protocol Last Admin: 06/03/18 17:28 Dose: Not Given Donepezil HCl (Aricept) 5 mg PO HS [facility] Last Admin: 06/02/18 21:26 Dose: 5 mg Enoxaparin Sodium (Lovenox) 40 mg SC DAILY [facility]S [facility]; Protocol Last Admin: 06/03/18 09:23 Dose: 40 mg Famotidine (Pepcid) 40 mg PO HS [facility] 234 [facility] Last Admin: 06/02/18 21:26 Dose: 40 mg Sodium Chloride (Sodium Chloride 0.9%) 1,000 mls @ 100 mls/hr IV .Q10H [facility]S [facility] 234 BEDS AT [facility] Last Admin: 06/03/18 16:34 Dose: 100 mls/hr Losartan Potassium (Cozaar) 50 mg PO DAILY [facility] Last Admin: 06/03/18 09:23 Dose: 50 mg Meloxicam (Mobic) 15 mg PO DAILY [facility] Last Admin: 06/03/18 09:23 Dose: 15 mg Ondansetron HCl (Zofran Inj) 4 mg IVP Q4H PRN PRN Reason: Nausea/Vomiting Last Admin: 06/03/18 08:31 Dose: 4 mg Timolol Maleate (Timoptic 0.5% Ophth Soln) 1 drop OD QAM JO ANN - Labs Labs: 06/03/18 07:00 06/03/18 07:00 PT 11.3 SECONDS (9.4-12.5) 06/01/18 23:37 INR 0.99 06/01/18 23:37 APTT 27.5 Seconds (25.1-36.5) 06/01/18 23:37 - Constitutional Appears: Non-toxic, No Acute Distress - Head Exam Head Exam: ATRAUMATIC, NORMOCEPHALIC - Eye Exam Eye Exam: EOMI - ENT Exam ENT Exam: Mucous Membranes Moist - Neck Exam Neck Exam: Full ROM - Respiratory Exam Respiratory Exam: Clear to Ausculation Bilateral, NORMAL BREATHING PATTERN. absent: Rales, Rhonchi, Wheezes - Cardiovascular Exam Cardiovascular Exam: REGULAR RHYTHM, RRR, +S1, +S2 - GI/Abdominal Exam GI & Abdominal Exam: Soft, Normal Bowel Sounds. absent: Distended, Firm, Guarding, Rigid, Tenderness - Extremities Exam Extremities Exam: absent: Calf Tenderness - Neurological Exam Neurological Exam: Alert, Awake, Oriented x3 - Psychiatric Exam Psychiatric exam: Normal Affect, Normal Mood - Skin Skin Exam: Dry, Warm Assessment and Plan - Assessment and Plan (Free Text) Assessment: 78 year old female with a past medical history significant for HTN and colon c ancer s/p laparoscopic hemicolectomy on 04/30 who presented for nausea, vomiting and abdominal pain. Internal Medicine was consulted for N/V. Plan: 1. Abdominal Pain with associated Nausea and Vomiting -Repeat CT Abdomen/Pelvis showed changes consistent with post-operative ileus -Abdominal US showed mild fatty infiltration of the liver -LFT's trending down since admission -Continue Cephalexin 500mg PO TID -Continue Meloxixam 15mg PO BID -Continue Zofran PRN for N/V 2. HTN -Continue Cozaar 50mg PO daily GI Prophylaxis: Pepcid DVT Prophylaxis: Lovenox/SCD's Diet: NPO Except Medications Disposition: No further recommendations from Internal Medicine at this time. Pat ient can be discharged home with follow up with her primary care doctor within one week of discharge. Please feel free to reconsult as needed. Patient seen and case discussed with attending, Dr. Santana.
[2018-06-03] MEDS ORDERED: Propofol 10 mg/ml Inj (20 ML) ONE (21:52)
[2018-06-03] MEDS ORDERED: Succinylcholine 200 mg/10 ml Inj IV ONE (21:53)
[2018-06-03] MEDS ORDERED: Rocuronium 10 mg/ml (5 ml) ONE (21:53)
[2018-06-03] MEDS ORDERED: Sevoflurane - Inhalation Anesthetic Liq (250 ml) ONE (22:04)
[2018-06-03] MEDS ORDERED: cefTRIAXone 1 GM in NS 100 ML BAG IVPB ONE (22:25)
[2018-06-03] MEDS ORDERED: cefTRIAXone (Rocephin) 1 gm Inj ONE (22:34)
[2018-06-03] MEDS ORDERED: metroNIDAZOLE IV 500 mg/100 ml 500 MG/100 ML BAG ONE (22:34)
[2018-06-03] MEDS ORDERED: MetroNIDAZOLE 500 mg/100 ml IVPB ONE (22:50)
[2018-06-03] MEDS ORDERED: Neostigmine Methylsulfate 3mg/3ml Syringe IV ONE (23:18)
[2018-06-03] MEDS ORDERED: Bupivacaine Liposomal Inj 20 ml ONE (23:24)
[2018-06-04] MEDS ORDERED: HYDROmorphone 0.5 mg/0.5 ml ISec IVP PRN (00:06)
[2018-06-04] MEDS ORDERED: Sodium Chloride 0.9% 1,000 ML IV SCH (00:09)
[2018-06-04] MEDS ORDERED: Lactated Ringer's 1,000 ML IV SCH ×3 (00:15→10:50)
[2018-06-04] MEDS ORDERED: HYDROmorphone 1 mg/ml ISec ONE ×2 (00:16→00:48)
--- NOTE | 2018-06-04 00:16 | PCM.SURG1 ---
Surgeon's Initial Post Op Note - Surgeon's Notes Surgeon: Dr. Blanco Other Wood Processing Machine Operator: Dr. Almodovar, PGY 1 Type of Anesthesia: General Endo Anesthesia Administered By: Dr. Soares Pre-Operative Diagnosis: partial small bowel obstruction Operative Findings: see operative note Post-Operative Diagnosis: same Operation Performed: lysis of adhesions and enterorraphy Specimen/Specimens Removed: none Estimated Blood Loss: EBL {In ML}: 15 Blood Products Given: N/A Drains Used: Domo Post-Op Condition: Fair Date of Surgery/Procedure: 06/04/18 Time of Surgery/Procedure: 22:30
[2018-06-04] MEDS ORDERED: HYDROmorphone 0.5 mg/0.5 ml ISec IVP ONE ×2 (00:33→00:50)
[2018-06-04] MEDS ORDERED: Sodium Chloride 0.9% 500 ML IV STA (03:30)
--- NOTE | 2018-06-04 04:34 | OP ---
PROCEDURE DATE: 06/03/2018 PREOPERATIVE DIAGNOSIS: Small bowel obstruction. POSTOPERATIVE DIAGNOSIS: Small bowel obstruction. PROCEDURES PERFORMED: Exploratory laparotomy and lysis of intra abdominal adhesions. SURGEONS: Kristian Blanco MD and Dr. Almodovar. ANESTHESIOLOGIST: Alexander Soares MD. TYPE OF ANESTHESIA: General endotracheal anesthesia. ESTIMATED BLOOD LOSS: Minimal. SPECIMEN: None. INDICATIONS: Patient is a 78-year-old female with a history of right colon cancer, for which she underwent right hemicolectomy 5 weeks ago. Patient was doing well postoperatively and about a week ago developed sudden onset of pain in the right lower quadrant. Patient was seen in the office, and couple of days after the onset of pain, patient felt better and was at home. Apparently over the past few days, she started getting nauseous and came to the hospital, where she was admitted for small bowel obstruction. On the CT scan done today, it appeared that there was ascitic fluid around the liver as well as evidence of small bowel obstruction with minimal amount of stool in the colon. A decision was made to proceed to the operating room for exploration. DESCRIPTION OF PROCEDURE: The patient was brought to the operating room and placed on the operating table in supine position. The patient was connected to the EKG, blood pressure and pulse oximetry monitors. The patient then underwent general endotracheal anesthesia, was prepped and draped in the usual sterile fashion. First, a standard timeout procedure took place when everybody in the room agreed as to the patient's identity, diagnoses, and procedure to be performed. Using a #15 blade, an incision was made in the midline extending through the old incision from laparoscopic colon resection slightly below and above the original incision. Access to the abdominal cavity was obtained and some ascitic fluid, which was yellowish dark, was suctioned out. There was no evidence of any purulence. We then carefully dissected all the adhesions of the small bowel and brought it out and the entire small bowel was ran from the Treitz ligament all the way down to the junction. It appeared that the colon past the anastomosis had some pasty stool and no evidence of any content past that area. The area of anastomosis was carefully evaluated. There was no obvious perforation. There was a piece of small bowel, which was just about 5 cm past the anastomosis, that was looped on itself and adhesed to the area of the anastomosis. This was carefully teased out and the loop of bowel had one area of fistulization, which was sutured with two Lambert's stitches in order to repair it. The anastomosis was then reinforced with 3-0 silk stitches along its anterior portion. There was no evidence of any collections or ischemia. The area was copiously irrigated. All the irrigant fluids were suctioned out, and at this point, a Domo drain was placed in the right lower quadrant and extended along the right paracolic gutter all the way down to the pelvis. This was sutured to the skin with 2.0 Tycron stitch. The abdominal cavity was then closed using #1 PDS in a running fashion. The wound was copiously irrigated and closed with interrupted 3-0 Vicryl and surgical celia. Sterile dressings were applied to all the wounds. Patient was awakened and extubated and transferred to the recovery room for further observation. Kristian Blanco MD [facility]
[2018-06-04] MEDS ORDERED: Sodium Chloride 0.9% 1,000 ML IV STA (05:31)
[2018-06-04] MEDS: metroNIDAZOLE IV 500 mg/100 ml 500 MG/100 ML BAG IVPB SCH ×3 (05:54→22:09)
[2018-06-04] MEDS: HYDROmorphone 1 mg/ml ISec IVP PRN (06:03)
[2018-06-04 07:17] LABS: BASO # 0.02 K/mm3 (0.0-2.0); BASO % 0.2 % (0.0-3.0); EOS # 0.1 (0.0-0.7); EOS % 0.9 % (1.5-5.0); GRAN # 9.88 (1.4-6.5); GRAN % 78.5 % (50.0-68.0); HEMOGLOBIN 11.8 g/dL (12.0-16.0); LYMPH # 1.5 (1.2-3.4); LYMPH % 12.1 % (22.0-35.0); MEAN CELL VOLUME 88.5 fl (80.0-105.0); MEAN CORPUSCULAR HEMOGLOBIN 30.2 pg (25.0-35.0); MEAN CORPUSCULAR HGB CONC 34.1 g/dl (31.0-37.0); MEAN PLATELET VOLUME 9.8 fl (7.0-11.0); MONO % 8.3 % (1.0-6.0); RBC 3.91 10^6/uL (3.5-6.1); RED CELL DISTRIBUTION WIDTH 13.6 % (11.5-14.5); WHITE BLOOD COUNT 12.6 10^3/ul (4.5-11.0)
[2018-06-04 07:24] LABS: ALBUMIN 2.4 g/dL (3.0-4.8); ALT/SGPT 44 U/L (7-56); AST/SGOT 53 U/L (14-36); BLOOD UREA NITROGEN 9 mg/dL (7-21); CALCIUM 7.2 mg/dL (8.4-10.5); GFR NON-AFRICAN AMERICAN > 60
[2018-06-04] MEDS ORDERED: Magnesium Sulfate 2 gm/50 ml 2 GM/50 ML BAG IVPB ONE (09:05)
[2018-06-04] MEDS: cefTRIAXone 1 gm 1 GM/100 ML BAG IVPB SCH (10:15)
[2018-06-05] MEDS: metroNIDAZOLE IV 500 mg/100 ml 500 MG/100 ML BAG IVPB SCH ×3 (06:08→21:45)
[2018-06-05 06:25] LABS: BASO # 0.01 K/mm3 (0.0-2.0); BASO % 0.1 % (0.0-3.0); EOS # 0.6 (0.0-0.7); EOS % 6.6 % (1.5-5.0); GRAN # 6.2 (1.4-6.5); GRAN % 70.6 % (50.0-68.0); HEMOGLOBIN 11.4 g/dL (12.0-16.0); LYMPH # 1.3 (1.2-3.4); LYMPH % 14.3 % (22.0-35.0); MEAN CELL VOLUME 90.4 fl (80.0-105.0); MEAN CORPUSCULAR HEMOGLOBIN 29.5 pg (25.0-35.0); MEAN CORPUSCULAR HGB CONC 32.7 g/dl (31.0-37.0); MEAN PLATELET VOLUME 9.8 fl (7.0-11.0); MONO # 0.7 (0.1-0.6); MONO % 8.4 % (1.0-6.0); RBC 3.86 10^6/uL (3.5-6.1); RED CELL DISTRIBUTION WIDTH 13.9 % (11.5-14.5); WHITE BLOOD COUNT 8.8 10^3/ul (4.5-11.0)
[2018-06-05 07:26] LABS: ALB/GLOB RATIO 0.9 (1.1-1.8); ALBUMIN 2.3 g/dL (3.0-4.8); ALT/SGPT 36 U/L (7-56); AST/SGOT 40 U/L (14-36); BLOOD UREA NITROGEN 11 mg/dL (7-21); CALCIUM 7.4 mg/dL (8.4-10.5); GFR NON-AFRICAN AMERICAN > 60
[2018-06-05] MEDS: cefTRIAXone 1 gm 1 GM/100 ML BAG IVPB SCH (10:10)
--- NOTE | 2018-06-05 15:33 | CP.PCM.PN ---
Subjective - Date & Time of Evaluation Date of Evaluation: 06/05/18 Time of Evaluation: 15:27 - Subjective Subjective: General Surgery Progress Note for Dr. Blanco This 78F was seen and examined this am at bedside. No acute events overnight. She reports pain with movement. She denies nausea or vomiting. She is not passing gas or moving bowels yet. She denies SOB or chest pain. Objective - Vital Signs/Intake and Output Vital Signs (last 24 hours): Temp Pulse Resp BP Pulse Ox 98.1 F 63 20 121/71 95 06/05/18 08:02 06/05/18 08:02 06/05/18 08:02 06/05/18 08:02 06/05/18 08:02 Intake and Output: 06/05/18 06/05/18 06:59 18:59 Intake Total 1800 Output Total 450 Balance 1350 - Medications Medications: Current Medications Acetaminophen (Tylenol 650mg/20.3ml Solution Ud) 500 mg PO Q4 PRN PRN Reason: Pain, Mild (1-3) Donepezil HCl (Aricept) 5 mg PO HS JO ANN Last Admin: 06/04/18 22:09 Dose: 5 mg Famotidine (Pepcid) 40 mg PO HS JO ANN Last Admin: 06/04/18 22:10 Dose: 40 mg Heparin Sodium (Porcine) (Heparin) 5,000 units SC Q8 JO ANN; Protocol Last Admin: 06/05/18 13:05 Dose: 5,000 units Hydromorphone HCl (Dilaudid) 0.5 mg IVP Q4H PRN PRN Reason: Pain, severe (8-10) Last Admin: 06/04/18 06:03 Dose: 0.5 mg Metronidazole (Flagyl) 500 mg in 100 mls @ 100 mls/hr IVPB Q8 JO ANN; Protocol Last Admin: 06/05/18 13:05 Dose: 100 mls/hr Ceftriaxone Sodium (Rocephin 1 Gram Ivpb) 1 gm in 100 mls @ 100 mls/hr IVPB DAILY [facility]; Protocol Last Admin: 06/05/18 10:10 Dose: 100 mls/hr Lactated Ringer's (Lactated Ringer's) 1,000 mls @ 75 mls/hr IV .[id number] [facility] Ketorolac Tromethamine (Toradol) 15 mg IVP Q6H PRN PRN Reason: Pain, moderate (4-7) Last Admin: 06/05/18 10:43 Dose: 15 mg Losartan Potassium (Cozaar) 50 mg PO DAILY [facility] Last Admin: 06/05/18 10:09 Dose: Not Given Meloxicam (Mobic) 15 mg PO DAILY [facility] Last Admin: 06/03/18 09:23 Dose: 15 mg Ondansetron HCl (Zofran Inj) 4 mg IVP Q4H PRN PRN Reason: Nausea/Vomiting Last Admin: 06/03/18 18:24 Dose: 4 mg Timolol Maleate (Timoptic 0.5% Ophth Soln) 1 drop OD QAM [facility] Last Admin: 06/05/18 10:11 Dose: 1 drop - Labs Labs: 06/05/18 06:00 06/05/18 06:00 PT 11.3 SECONDS (9.4-12.5) 06/01/18 23:37 INR 0.99 06/01/18 23:37 APTT 27.5 Seconds (25.1-36.5) 06/01/18 23:37 - Constitutional Appears: Non-toxic - Head Exam Head Exam: ATRAUMATIC, NORMOCEPHALIC - Eye Exam Eye Exam: EOMI - ENT Exam ENT Exam: Mucous Membranes Moist - Respiratory Exam Respiratory Exam: NORMAL BREATHING PATTERN - Cardiovascular Exam Cardiovascular Exam: +S1, +S2 - GI/Abdominal Exam GI & Abdominal Exam: Soft. absent: Tenderness Additional comments: Dressing CDI - Neurological Exam Neurological Exam: Alert, Awake - Psychiatric Exam Psychiatric exam: Normal Affect, Normal Mood - Skin Skin Exam: Dry, Intact Assessment and Plan - Assessment and Plan (Free Text) Assessment: 78F POD#2 s/p Exlpa and JASSI and doing well CLD will followup tolerance Follow outputs Monitor bowel function Knee stockings Ambulate Pain control D/W Dr. Francis Cano PGY3
[2018-06-05] MEDS: HYDROmorphone 1 mg/ml ISec IVP PRN (21:34)
[2018-06-06] MEDS: metroNIDAZOLE IV 500 mg/100 ml 500 MG/100 ML BAG IVPB SCH ×3 (05:09→21:59)
[2018-06-06 06:27] LABS: BASO # 0.01 K/mm3 (0.0-2.0); BASO % 0.1 % (0.0-3.0); EOS # 0.8 (0.0-0.7); EOS % 11.6 % (1.5-5.0); GRAN # 4.31 (1.4-6.5); GRAN % 60.8 % (50.0-68.0); HEMOGLOBIN 11.3 g/dL (12.0-16.0); LYMPH # 1.3 (1.2-3.4); LYMPH % 17.8 % (22.0-35.0); MEAN CELL VOLUME 89.8 fl (80.0-105.0); MEAN CORPUSCULAR HEMOGLOBIN 29.7 pg (25.0-35.0); MEAN PLATELET VOLUME 9.6 fl (7.0-11.0); MONO # 0.7 (0.1-0.6); MONO % 9.7 % (1.0-6.0); RBC 3.81 10^6/uL (3.5-6.1); RED CELL DISTRIBUTION WIDTH 13.9 % (11.5-14.5); WHITE BLOOD COUNT 7.1 10^3/ul (4.5-11.0)
[2018-06-06 07:10] LABS: ALBUMIN 2.3 g/dL (3.0-4.8); ALT/SGPT 31 U/L (7-56); AST/SGOT 29 U/L (14-36); BLOOD UREA NITROGEN 8 mg/dL (7-21); CALCIUM 7.4 mg/dL (8.4-10.5); GFR NON-AFRICAN AMERICAN > 60
[2018-06-06] MEDS: cefTRIAXone 1 gm 1 GM/100 ML BAG IVPB SCH (09:33)
[2018-06-06] MEDS ORDERED: Sodium Phosphate 15 MMOLE in Sodium Chloride 0.9% 250 ML IVPB ONE (14:27)
[2018-06-06] MEDS ORDERED: Potassium & Sodium Phosphate PO STA (14:28)
--- NOTE | 2018-06-06 14:36 | CP.PCM.PN ---
Subjective - Date & Time of Evaluation Date of Evaluation: 06/06/18 Time of Evaluation: 11:00 - Subjective Subjective: Patient seen and examined. No acute events over night. Slight abdominal distension. Tolerating liquids. Denies BM. Objective - Vital Signs/Intake and Output Vital Signs (last 24 hours): Temp Pulse Resp BP Pulse Ox 98.1 F 65 20 153/84 H 96 06/06/18 06:00 06/06/18 09:33 06/06/18 06:00 06/06/18 09:33 06/06/18 06:00 Intake and Output: 06/06/18 06/06/18 06:59 18:59 Intake Total 1250 Output Total 150 Balance 1100 - Medications Medications: Current Medications Acetaminophen (Tylenol 650mg/20.3ml Solution Ud) 500 mg PO Q4 PRN PRN Reason: Pain, Mild (1-3) Donepezil HCl (Aricept) [address] [facility] Last Admin: 06/05/18 21:34 Dose: 5 mg Famotidine (Pepcid) 40 mg PO HS JO ANN Last Admin: 06/05/18 21:40 Dose: 40 mg Heparin Sodium (Porcine) (Heparin) 5,000 units SC Q8 JO ANN; Protocol Last Admin: 06/06/18 05:10 Dose: 5,000 units Hydromorphone HCl (Dilaudid) 0.5 mg IVP Q4H PRN PRN Reason: Pain, severe (8-10) Last Admin: 06/05/18 21:34 Dose: 0.5 mg Metronidazole (Flagyl) 500 mg in 100 mls @ 100 mls/hr IVPB Q8 JO ANN; Protocol Last Admin: 06/06/18 05:09 Dose: 100 mls/hr Ceftriaxone Sodium (Rocephin 1 Gram Ivpb) 1 gm in 100 mls @ 100 mls/hr IVPB NICHOLAS LY JO ANN; Protocol Last Admin: 06/06/18 09:33 Dose: 100 mls/hr Lactated Ringer's (Lactated Ringer's) 1,000 mls @ 75 mls/hr IV .[id number] [facility] Sodium Phosphate 15 mmole/ (Sodium Chloride) 255 mls @ 42.5 mls/hr IVPB ONCE ONE Stop: 06/06/18 20:26 Ketorolac Tromethamine (Toradol) 15 mg IVP Q6H PRN PRN Reason: Pain, moderate (4-7) Last Admin: 06/06/18 09:32 Dose: 15 mg Losartan Potassium (Cozaar) [address] [facility] Last Admin: 06/06/18 09:33 Dose: 50 mg Meloxicam (Mobic) [address] [facility] Last Admin: 06/03/18 09:23 Dose: 15 mg Ondansetron HCl (Zofran Inj) 4 mg IVP Q4H PRN PRN Reason: Nausea/Vomiting Last Admin: 06/03/18 18:24 Dose: 4 mg Timolol Maleate (Timoptic 0.5% Ophth Soln) [address] [facility] Last Admin: 06/05/18 10:11 Dose: 1 drop - Labs Labs: 06/06/18 06:00 06/06/18 06:00 PT 11.3 SECONDS (9.4-12.5) 06/01/18 23:37 INR 0.99 06/01/18 23:37 APTT 27.5 Seconds (25.1-36.5) 06/01/18 23:37 - Constitutional Appears: No Acute Distress - Head Exam Head Exam: NORMOCEPHALIC - Eye Exam Eye Exam: Normal appearance - ENT Exam ENT Exam: Mucous Membranes Moist - Respiratory Exam Respiratory Exam: NORMAL BREATHING PATTERN - Cardiovascular Exam Cardiovascular Exam: +S1, +S2 - GI/Abdominal Exam GI & Abdominal Exam: Soft - Neurological Exam Neurological Exam: Alert, Awake, Oriented x3 - Psychiatric Exam Psychiatric exam: Normal Mood - Skin Skin Exam: Dry, Intact, Warm Assessment and Plan - Assessment and Plan (Free Text) Assessment: 78F POD#3 s/p Exlap and JASSI Plan: C/w CLD Will advance diet once pt has BM KVO I&O's Monitor abd function Knee stockings Ambulate Pain control D/W Dr. Francis Rwoe PGY3
[2018-06-06] MEDS ORDERED: HYDROmorphone 0.5 mg/0.5 ml ISec IVP PRN (16:07)
[2018-06-07] MEDS: metroNIDAZOLE IV 500 mg/100 ml 500 MG/100 ML BAG IVPB SCH (05:48)
[2018-06-07 06:57] LABS: BASO # 0.01 K/mm3 (0.0-2.0); BASO % 0.1 % (0.0-3.0); EOS # 0.5 (0.0-0.7); EOS % 7.3 % (1.5-5.0); GRAN # 4.41 (1.4-6.5); GRAN % 61.8 % (50.0-68.0); HEMOGLOBIN 11.7 g/dL (12.0-16.0); LYMPH # 1.4 (1.2-3.4); LYMPH % 20.2 % (22.0-35.0); MEAN CELL VOLUME 88.8 fl (80.0-105.0); MEAN CORPUSCULAR HEMOGLOBIN 29.8 pg (25.0-35.0); MEAN CORPUSCULAR HGB CONC 33.5 g/dl (31.0-37.0); MEAN PLATELET VOLUME 9.8 fl (7.0-11.0); MONO # 0.8 (0.1-0.6); MONO % 10.6 % (1.0-6.0); RBC 3.93 10^6/uL (3.5-6.1); RED CELL DISTRIBUTION WIDTH 13.8 % (11.5-14.5); WHITE BLOOD COUNT 7.1 10^3/ul (4.5-11.0)
[2018-06-07 07:46] LABS: ALBUMIN 2.4 g/dL (3.0-4.8); ALT/SGPT 35 U/L (7-56); AST/SGOT 21 U/L (14-36); BLOOD UREA NITROGEN 4 mg/dL (7-21); CALCIUM 7.9 mg/dL (8.4-10.5); GFR NON-AFRICAN AMERICAN > 60
[2018-06-07] MEDS ORDERED: Potassium Chloride 20 mEq ER Tab PO ONE (08:30)
--- NOTE | 2018-06-07 08:33 | CP.PCM.PN ---
Subjective - Date & Time of Evaluation Date of Evaluation: 06/07/18 Time of Evaluation: 08:31 - Subjective Subjective: Surgery: Dr. Blanco Patient doing well. 2x bowel movements overnight. Tolerating liquid diet. No n/v/f/c. Objective - Vital Signs/Intake and Output Vital Signs (last 24 hours): Temp Pulse Resp BP Pulse Ox 98.8 F 70 20 147/83 95 06/06/18 17:02 06/06/18 17:02 06/06/18 17:02 06/06/18 17:02 06/06/18 17:02 Intake and Output: 06/07/18 06/07/18 06:59 18:59 Intake Total 2400 Output Total 265 Balance 2135 - Medications Medications: Current Medications Acetaminophen (Tylenol 650mg/20.3ml Solution Ud) 500 mg PO Q4 PRN PRN Reason: Pain, Mild (1-3) Donepezil HCl (Aricept) 5 mg PO HS JO ANN Last Admin: 06/06/18 21:58 Dose: 5 mg Famotidine (Pepcid) 40 mg PO HS JO ANN Last Admin: 06/06/18 21:58 Dose: 40 mg Heparin Sodium (Porcine) (Heparin) 5,[address] [facility]; Protocol Last Admin: 06/07/18 05:49 Dose: 5,000 units Ceftriaxone Sodium (Rocephin 1 Gram Ivpb) 1 gm in 100 mls @ 100 mls/hr IVPB DAILY [facility]; Protocol Last Admin: 06/06/18 09:33 Dose: 100 mls/hr Ketorolac Tromethamine (Toradol) 15 mg IVP Q6H PRN PRN Reason: Pain, moderate (4-7) Last Admin: 06/06/18 09:32 Dose: 15 mg Losartan Potassium (Cozaar) [address] [facility] Last Admin: 06/06/18 09:33 Dose: 50 mg Meloxicam (Mobic) [address] [facility] Last Admin: 06/03/18 09:23 Dose: 15 mg Ondansetron HCl (Zofran Inj) 4 mg IVP Q4H PRN PRN Reason: Nausea/Vomiting Last Admin: 06/03/18 18:24 Dose: 4 mg Potassium Chloride (K-Dur 20 Meq Er Tab) 40 meq PO BRK ONE Stop: 06/07/18 08:31 Timolol Maleate (Timoptic 0.5% Ophth Soln) 1 drop OD QAM JO ANN Last Admin: 06/05/18 10:11 Dose: 1 drop - Labs Labs: 06/07/18 06:00 06/07/18 06:00 PT 11.3 SECONDS (9.4-12.5) 06/01/18 23:37 INR 0.99 06/01/18 23:37 APTT 27.5 Seconds (25.1-36.5) 06/01/18 23:37 - Constitutional Appears: Non-toxic, No Acute Distress - Head Exam Head Exam: ATRAUMATIC, NORMOCEPHALIC - Eye Exam Eye Exam: EOMI, Normal appearance - ENT Exam ENT Exam: Mucous Membranes Moist - Respiratory Exam Respiratory Exam: NORMAL BREATHING PATTERN. absent: Respiratory Distress - Cardiovascular Exam Cardiovascular Exam: REGULAR RHYTHM. absent: Tachycardia - GI/Abdominal Exam GI & Abdominal Exam: Soft. absent: Distended, Guarding, Tenderness, Rebound Additional comments: incisions CDI w/ staple closure, dressing removed, betadine to surrounding skin applied Assessment and Plan - Assessment and Plan (Free Text) Assessment: 78F POD#4 s/p Exlap and JASSI Plan: -reg diet -OOB -replace K+ -d/c IVFs -leave incision open to air -possible removal of drain today -possible d/c home -further recs per Dr. Blanco [facility], [place] PGY4
[2018-06-07] MEDS: cefTRIAXone 1 gm 1 GM/100 ML BAG IVPB SCH (14:06)
[2018-06-08 07:52] LABS: ALBUMIN 2.5 g/dL (3.0-4.8); ALT/SGPT 27 U/L (7-56); AST/SGOT 54 U/L (14-36); BASO # 0.01 K/mm3 (0.0-2.0); BASO % 0.2 % (0.0-3.0); BLOOD UREA NITROGEN 3 mg/dL (7-21); CALCIUM 8.3 mg/dL (8.4-10.5); EOS # 0.3 (0.0-0.7); EOS % 4.4 % (1.5-5.0); GFR NON-AFRICAN AMERICAN > 60; GRAN # 3.5 (1.4-6.5); GRAN % 54.7 % (50.0-68.0); HEMOGLOBIN 11.3 g/dL (12.0-16.0); LYMPH # 1.8 (1.2-3.4); LYMPH % 28.2 % (22.0-35.0); MEAN CELL VOLUME 89.1 fl (80.0-105.0); MEAN CORPUSCULAR HEMOGLOBIN 29.3 pg (25.0-35.0); MEAN CORPUSCULAR HGB CONC 32.8 g/dl (31.0-37.0); MEAN PLATELET VOLUME 9.8 fl (7.0-11.0); MONO # 0.8 (0.1-0.6); MONO % 12.5 % (1.0-6.0); RBC 3.86 10^6/uL (3.5-6.1); RED CELL DISTRIBUTION WIDTH 13.9 % (11.5-14.5); WHITE BLOOD COUNT 6.4 10^3/ul (4.5-11.0)
[2018-06-08 09:12] VITALS: O2SAT 94
--- NOTE | 2018-06-08 14:43 | CP.PCM.DIS ---
Provider - Provider Date of Admission: 06/02/18 16:11 Attending physician: Kristian Blanco MD Primary care physician: Becki Kim MD Time Spent in preparation of Discharge (in minutes): 25 Hospital Course - Lab Results Lab Results: Micro Results 06/02/18 00:00 Urine Urine Culture - Final No Growth (<1,000 CFU/ML) Most Recent Lab Values WBC 6.4 10^3/ul (4.5-11.0) 06/08/18 06:30 RBC 3.86 10^6/uL (3.5-6.1) 06/08/18 06:30 Hgb 11.3 g/dL (12.0-16.0) L 06/08/18 06:30 Hct 34.4 % (36.0-48.0) L 06/08/18 06:30 MCV 89.1 fl (80.0-105.0) 06/08/18 06:30 MCH 29.3 pg (25.0-35.0) 06/08/18 06:30 MCHC 32.8 g/dl (31.0-37.0) 06/08/18 06:30 RDW 13.9 % (11.5-14.5) 06/08/18 06:30 Plt Count 408 10^3/uL (120.0-450.0) 06/08/18 06:30 MPV 9.8 fl (7.0-11.0) 06/08/18 06:30 Gran % 54.7 % (50.0-68.0) 06/08/18 06:30 Lymph % (Auto) 28.2 % (22.0-35.0) 06/08/18 06:30 Mayes % (Auto) 12.5 % (1.0-6.0) H 06/08/18 06:30 Eos % (Auto) 4.4 % (1.5-5.0) 06/08/18 06:30 Baso % (Auto) 0.2 % (0.0-3.0) 06/08/18 06:30 Gran # 3.50 (1.4-6.5) 06/08/18 06:30 Lymph # (Auto) 1.8 (1.2-3.4) 06/08/18 06:30 Mayes # (Auto) 0.8 (0.1-0.6) H 06/08/18 06:30 Eos # (Auto) 0.3 (0.0-0.7) 06/08/18 06:30 Baso # (Auto) 0.01 K/mm3 (0.0-2.0) 06/08/18 06:30 PT 11.3 SECONDS (9.4-12.5) 06/01/18 23:37 INR 0.99 06/01/18 23:37 APTT 27.5 Seconds (25.1-36.5) 06/01/18 23:37 Sodium 136 mmol/L (132-148) 06/08/18 06:30 Potassium 3.5 mmol/L (3.6-5.0) L 06/08/18 06:30 Chloride 103 mmol/L (98-107) 06/08/18 06:30 Carbon Dioxide 29 mmol/L (21-33) 06/08/18 06:30 Anion Gap 7 (10-20) L 06/08/18 06:30 BUN 3 mg/dL (7-21) L 06/08/18 06:30 Creatinine 0.7 mg/dl (0.7-1.2) 06/08/18 06:30 Est GFR ( Amer) > 60 06/08/18 06:30 Est GFR (Non-Af Amer) > 60 06/08/18 06:30 Random Glucose 89 mg/dL (70-110) 06/08/18 06:30 Calcium 8.3 mg/dL (8.4-10.5) L 06/08/18 06:30 Phosphorus 2.5 mg/dL (2.5-4.5) 06/08/18 06:30 Magnesium 1.7 mg/dL (1.7-2.2) 06/08/18 06:30 Total Bilirubin 0.5 mg/dL (0.2-1.3) 06/08/18 06:30 AST 54 U/L (14-36) H D 06/08/18 06:30 ALT 27 U/L (7-56) 06/08/18 06:30 Alkaline Phosphatase 66 U/L (38-126) 06/08/18 06:30 Total Protein 5.0 g/dL (5.8-8.3) L 06/08/18 06:30 Albumin 2.5 g/dL (3.0-4.8) L 06/08/18 06:30 Globulin 2.5 gm/dL 06/08/18 06:30 Albumin/Globulin Ratio 1.0 (1.1-1.8) L 06/08/18 06:30 Lipase 27 U/L (23-300) 06/01/18 23:37 Urine Color Yellow (YELLOW) 06/02/18 00:00 Urine Appearance Clear (CLEAR) 06/02/18 00:00 Urine pH 6.0 (4.7-8.0) 06/02/18 00:00 Ur Specific [place] 1.025 (1.005-1.035) 06/02/18 00:00 Urine Protein Negative mg/dL (<30 mg/dL) 06/02/18 00:00 Urine Glucose (UA) Negative mg/dL (NEGATIVE) 06/02/18 00:00 Urine Ketones >=80 mg/dL (NEGATIVE) 06/02/18 00:00 Urine Blood Negative (NEGATIVE) 06/02/18 00:00 Urine Nitrate Negative (NEGATIVE) 06/02/18 00:00 Urine Bilirubin Negative (NEGATIVE) 06/02/18 00:00 Urine Urobilinogen 0.2 E.U./dL (<1 E.U./dL) 06/02/18 00:00 Ur Leukocyte Esterase Trace Brian/uL (NEGATIVE) H 06/02/18 00:00 Urine RBC 1 - 3 /hpf (0-2) 06/02/18 00:00 Urine WBC 2 - 5 /hpf (0-6) 06/02/18 00:00 Ur Epithelial Cells 0 - 2 /hpf (0-5) 06/02/18 00:00 Urine Bacteria Mod (NEG) 06/02/18 00:00 Blood Type O POSITIVE 06/03/18 21:25 Antibody Screen Negative 06/03/18 21:25 Crossmatch See Detail 06/03/18 21:25 BBK History Checked Patient has bt 06/03/18 21:25 - Hospital Course Hospital Course: 06/02: 78 yr old female w/ pmh HTN s/p Laparoscopic Right hemicolectomy with Dr. Blanco on 04/30 who presents with 2 days of nausea abdominal cramping and vomiting after taking the antibiotics which she was recently prescribed (Rocephin and flagyl). Patient's family is present to translate. She states that she has been taking the antibiotics since Monday and that her symptoms have been of the same duration. She c/o mild diffuse intermittent crampy pain in the mid morning after taking the antibiotics and n/v following this crampy pain. She endorses having normal BM and passing flatus during this time with no bloody or tarry stools and no diarrhea. She denies fevers, chills, ORTEGA, CP, SOB, constipation, diarrhea and bloating. 06/03: Patient went to OR for JASSI and enterorrhaphy 06/05: seen and examined this am at bedside. No acute events overnight. She reports pain with movement. She denies nausea or vomiting. She is not passing gas or moving bowels yet. She denies SOB or chest pain. 06/06: Patient seen and examined. No acute events over night. Slight abdominal distension. Tolerating liquids. Denies BM. 06/07: Patient doing well. 2x bowel movements overnight. Tolerating liquid diet. No n/v/f/c. 06/08:Patient doing well. BM over night. Passing flatus. No nausea/vomiting. Abdomen is non-distended. JAIME output is scant. Patient to be d/c to rehab. JAIME drain removed. Will follow up in surgery clinic in 1 week. Above is a brief summary of patient hospital course, for further details refer to medical records. Discharge Exam - Head Exam Head Exam: ATRAUMATIC, NORMOCEPHALIC - Eye Exam Eye Exam: Normal appearance - Respiratory Exam Respiratory Exam: NORMAL BREATHING PATTERN - Cardiovascular Exam Cardiovascular Exam: +S1, +S2 - GI/Abdominal Exam GI & Abdominal Exam: Soft - Neurological Exam Neurological exam: Alert, Oriented x3 - Psychiatric Exam Psychiatric exam: Normal Mood - Skin Skin Exam: Dry, Intact, Normal Color, Warm Discharge Plan - Follow Up Plan Condition: STABLE Disposition: HOME/ ROUTINE Instructions: Nausea and Vomiting, Adult (DC) Additional Instructions: OK to shower. *Follow up with Dr Blanco in 1 week. Referrals: Kristian Blanco MD [Staff Provider] - Becki Mtz MD [Primary Care Provider] -
[2018-06-08] MEDS ORDERED: Potassium Chloride 20 mEq ER Tab PO ONE (14:54)
[2018-06-08 19:38] VITALS: BP 148/88; PULSE 64; RESP 19; TEMP 98.5
== END 2018-06-08 19:00 | DRG 337 ==
LOC: ED 22:10 → ERH 06-02 01:57 → 3RSO 06-02 03:18 → OBSVTOIN 06-02 16:11
PROVIDERS: ADMIT General Practice; ATTEND General Practice
PROC: 0DN80ZZ Release Small Intestine, Open Approach (ICD-10-PCS; principal; 2018-06-03 22:30)
DX: K56.50 Intestinal adhesions [bands], unspecified as to partial versus complete obstruction (principal); I10 Essential (primary) hypertension; H40.9 Unspecified glaucoma; Z85.038 Personal history of other malignant neoplasm of large intestine; Z79.1 Long term (current) use of non-steroidal anti-inflammatories (NSAID); R79.89 Other specified abnormal findings of blood chemistry

== ENCOUNTER 2018-08-31 05:57 | Outpatient (CLI) | payer MEDICARE, BC | END 2018-08-31 05:58 | disposition home or self-care (01) | LOC: PET-BROA 05:57 | DX: C18.9 Malignant neoplasm of colon, unspecified (principal) ==